=== PATIENT | male | born 1945 | race Caucasian/White ===

== ENCOUNTER 2018-07-17 16:03 | Inpatient (IN) | payer MEDICARE, OTHER ==
[~2018-07-17] VITALS: Ht 167.6 cm; Wt 72.6 kg
--- NOTE | 2018-07-17 15:58 | NUR ---
PT BIB BY AMBULANCE VIA GURNEY. PT IS CALM, COOPERATIVE, FRIEND BASSEM AT BEDSIDE WHO HELPS TRANSLATE FOR PT. PT HAS NO SIGNS OF RESPIRATORY DISTRESS, ON ROOM AIR, NO OPEN WOUNDS, AOX4, BM YESTERDAY, ANDREA INSERTED TODAY AT [facility], ANDREA IS PATENT, URINE YELLOW AND CLEAR. PT HAS BEEN NPO SINCE ARRIVAL. BRUISING IS NOTED ON THE LEFT INNER THIGH, ELBOW AND BUTTOCKS.
[2018-07-17 16:51] VITALS: BP 122/86
[2018-07-17] MEDS ORDERED: LOSA50TA39 PO (17:30)
[2018-07-17] MEDS ORDERED: MECL12.582 PO (17:30)
[2018-07-17] MEDS ORDERED: LORA1TAB PO (17:30)
[2018-07-17] MEDS ORDERED: AMLO10TA7 PO (17:30)
[2018-07-17] MEDS ORDERED: DICL100G16 TP (17:30)
[2018-07-17] MEDS ORDERED: SIMV20TA6 PO (17:34)
[2018-07-17] MEDS ORDERED: ASPI81TA31 PO (17:34)
[2018-07-17] MEDS ORDERED: SERT50TA12 PO (17:34)
[2018-07-17] MEDS ORDERED: GLIM2TAB2 PO (17:34)
[2018-07-17] MEDS ORDERED: METF-442 PO (17:34)
[2018-07-17] MEDS ORDERED: OMEP40CA37 PO (17:34)
[2018-07-17] MEDS ORDERED: VALA500T34 PO (17:36)
[2018-07-17] MEDS ORDERED: GABA-534 PO (17:36)
[2018-07-17] MEDS: HYDROMORPHONE 1 MG/1 ML DISP.SYRIN IV PRN (18:13)
--- NOTE | 2018-07-17 18:56 | NUR ---
PATIENT WAS COMPLAINING OF PAIN ON LEFT HIP, WAS GIVEN 1MG DILAUDID. PAIN IS 10/10. PATIENT IS NOT IN ANY RESPIRATORY DISTRESS AT THIS TIME. CONTINUE TO MONITOR PATIENT.
[2018-07-17] MEDS ORDERED: ACETAMINOPHEN 650 MG SUPP.RECT RC PRN (19:15)
[2018-07-17] MEDS ORDERED: DEXTROSE 50% 50 ML DISP.SYRIN IV PRN (19:15)
[2018-07-17] MEDS ORDERED: ONDANSETRON 4 MG/2 ML VIAL IV PRN (19:15)
--- NOTE | 2018-07-17 19:30 | NUR ---
RECEIVED PT IN BED,RESTING, IN NO ACUTE SIGNS OF DISTRESS. SAFETY MEASURES OBSERVED.
[2018-07-17 19:59] VITALS: BP 145/67
[2018-07-17] MEDS: IV D5 1/2 NS 1000 ML 1,000 ML IV PRN (20:42)
[2018-07-18] MEDS: HYDROMORPHONE 1 MG/1 ML DISP.SYRIN IV PRN ×5 (00:15→18:05)
[2018-07-18] MEDS: BLOOD SUGAR DIAGNOSTIC 1 EACH STRIP VI SCH ×5 (00:19→21:21)
[2018-07-18] MEDS: INSULIN REGULAR, HUMAN 300 UNIT/3 ML VIAL SQ PRN ×5 (00:29→21:22)
[2018-07-18 04:00] VITALS: BP 120/54
--- NOTE | 2018-07-18 06:13 | NUR ---
PT IN BED, RESTING, CONTINUE ON NPO, ACCUCHECK DONE WITH INSULIN COVERAGE. PT REFUSED AM INSULIN PER COVERAGE, TURNED AND REPOSITIONED. ON PAIN MANAGEMENT. MEDICATED WITH DILAUDID ORDERED. IV FLUID RUNNING ORDERED. SAFETY MEASURES MAINTAINED.
[2018-07-18 06:42] LABS: BASOPHILS % (AUTO) 0.3 % (0.0-2.0); EOSINOPHILS % (AUTO) 0.2 % (0.0-7.0); HEMOGLOBIN 11.3 g/dL (12.5-16.3); LYMPHOCYTES % (AUTO) 9.2 % (20.5-51.5); MEAN CORPUSCULAR HEMOGLOBIN 33.6 uug (23.8-33.4); MEAN CORPUSCULAR HGB CONC 35 g/dL (32.5-36.3); MEAN CORPUSCULAR VOLUME 95.4 fL (73.0-96.2); MONOCYTES % (AUTO) 9.6 % (0.0-11.0); NEUTROPHILS # (AUTO) 8.8 K/uL (1.8-8.9); NEUTROPHILS % (AUTO) 80.7 % (38.5-71.5); PLATELET COUNT (AUTO) 211 K/uL (152-348); RED BLOOD CELL COUNT(AUTO) 3.35 MIL/uL (4.06-5.63); WHITE BLOOD COUNT (AUTO) 10.9 K/uL (3.6-10.2)
[2018-07-18 07:07] LABS: ALANINE AMINOTRANSFERASE 43 U/L (16-63); ALKALINE PHOSPHATASE 47 U/L (50-136); BILIRUBIN,TOTAL 0.5 mg/dL (0.2-1.0); CARBON DIOXIDE 27 mmol/L (21-32); CHLORIDE 102 mmol/L (98-107); CHOLESTEROL 136 mg/dL (<200); CREATININE 0.8 mg/dL (0.6-1.3); GLUCOSE 174 mg/dL (74-106); HDL CHOLESTEROL 54 mg/dL (40-60); MAGNESIUM 1.8 mg/dL (1.8-2.4); PHOSPHOROUS 2.4 mg/dL (2.5-4.9); POTASSIUM 3.7 mmol/L (3.5-5.1); TOTAL PROTEIN, SERUM 6.3 g/dL (6.4-8.2); TRIGLYCERIDES 114 MG/DL (30-150); UREA NITROGEN, BLOOD 17 mg/dL (7-18)
[2018-07-18 07:17] LABS: ASPARTATE AMINOTRANSFERASE 58 U/L (15-37)
[2018-07-18 07:21] LABS: IRON, SERUM 23 ug/dL (50-175)
[2018-07-18 07:22] LABS: THYROID STIMULATING HORMONE 1.573 mIU/mL (0.358-3.740)
[2018-07-18] MEDS: PANTOPRAZOLE SODIUM 40 MG VIAL IV SCH (09:29)
[2018-07-18] MEDS ORDERED: POTASSIUM PHOSPHATE MM 7.5 MMOL in IV DEXTROSE 5% 100 ML IV ONE (11:00)
[2018-07-18 11:51] VITALS: BP 138/59
[2018-07-18 15:33] VITALS: BP 132/69
[2018-07-18] MEDS: IV D5 1/2 NS 1000 ML 1,000 ML IV PRN (18:00)
[2018-07-18] MEDS ORDERED: HYDROMORPHONE 1 MG/1 ML DISP.SYRIN IV PRN (19:15)
[2018-07-18 19:16] VITALS: BP 143/68
[2018-07-19] MEDS: HYDROMORPHONE 2 MG/1 ML DISP.SYRIN IV PRN ×4 (01:28→11:42)
--- NOTE | 2018-07-19 02:25 | NUR ---
pt pulled out iv and pulled out lynch. reinserted iv and given pt pain meds. will ask md to get order to reinsert lynch. pt had small amount of blood on penis. will reassess for complications.
[2018-07-19 03:41] VITALS: BP 157/70
--- NOTE | 2018-07-19 05:43 | NUR ---
reassesed perineal area. pt has small amount of bleeding on penis. perineal care done. pt refused lynch. asked patient when his surgery was. pt showed signs of confusion. pt continues to be non adherent to hip precautions. pt overestimates own ability. pt agreed to blood draw. bladder scan done. 171 retained. fall precautions implemented. pain medications given to provide comfort.
[2018-07-19 06:01] LABS: BASOPHILS % (AUTO) 0.3 % (0.0-2.0); EOSINOPHILS % (AUTO) 0.1 % (0.0-7.0); HEMATOCRIT 30.3 % (36.7-47.1); HEMOGLOBIN 10.8 g/dL (12.5-16.3); LYMPHOCYTES # (AUTO) 1.2 K/uL (20.0-40.0); MEAN CORPUSCULAR HEMOGLOBIN 33.8 uug (23.8-33.4); MEAN CORPUSCULAR HGB CONC 36 g/dL (32.5-36.3); MEAN CORPUSCULAR VOLUME 94.9 fL (73.0-96.2); MONOCYTES # (AUTO) 0.9 K/uL (2.0-10.0); MONOCYTES % (AUTO) 8.4 % (0.0-11.0); NEUTROPHILS # (AUTO) 8.6 K/uL (1.8-8.9); NEUTROPHILS % (AUTO) 80.2 % (38.5-71.5); PLATELET COUNT (AUTO) 210 K/uL (152-348); RED BLOOD CELL COUNT(AUTO) 3.19 MIL/uL (4.06-5.63); WHITE BLOOD COUNT (AUTO) 10.7 K/uL (3.6-10.2)
[2018-07-19 06:09] LABS: ALANINE AMINOTRANSFERASE 45 U/L (16-63); ALKALINE PHOSPHATASE 51 U/L (50-136); ASPARTATE AMINOTRANSFERASE 38 U/L (15-37); BILIRUBIN,TOTAL 0.7 mg/dL (0.2-1.0); CARBON DIOXIDE 27 mmol/L (21-32); CHLORIDE 97 mmol/L (98-107); CREATININE 0.7 mg/dL (0.6-1.3); GLUCOSE 196 mg/dL (74-106); MAGNESIUM 1.8 mg/dL (1.8-2.4); PHOSPHOROUS 2.3 mg/dL (2.5-4.9); POTASSIUM 3.4 mmol/L (3.5-5.1); TOTAL PROTEIN, SERUM 6.3 g/dL (6.4-8.2); UREA NITROGEN, BLOOD 16 mg/dL (7-18)
[2018-07-19] MEDS: IV D5 1/2 NS 1000 ML 1,000 ML IV PRN (06:40)
[2018-07-19] MEDS: BLOOD SUGAR DIAGNOSTIC 1 EACH STRIP VI SCH ×4 (06:46→21:18)
--- NOTE | 2018-07-19 07:52 | NUR ---
patient resting in bed at this time. awake/ alert x4. appears to be easily agitated. non-compliant per rn shift mgr nurse. pulled out lynch catheter. will reattempt to reinsert. pulled out IV access during the rn shift mgr and reinserted. ivf running. stable condition at this time. no signs of distress. bed alarm on. call light within reach of patient. will continue to monitor throughout shift. awaiting cardio clearance for possible surgery.
[2018-07-19] MEDS: INSULIN REGULAR, HUMAN 300 UNIT/3 ML VIAL SQ PRN ×3 (08:22→21:21)
--- NOTE | 2018-07-19 08:30 | NUR ---
NOTIFIED BY FISHER POUND NET OR TRAP NURSE THAT PATIENT HAS BEEN NPO SINCE MIDNIGHT BUT NO ORDERS WERE PLACED FOR NPO STATUS. NPO STATUS ORDER NOW PLACED.
[2018-07-19] MEDS: PANTOPRAZOLE SODIUM 40 MG VIAL IV SCH (08:57)
--- NOTE | 2018-07-19 09:44 | NUR ---
Patient now refusing to have surgery. MD notified. Will try to get into contact with patient's family/friend contact in chart.
[2018-07-19] MEDS ORDERED: POLYMYXIN B SULFATE 500,000 UNITS, BACITRACIN 50,000 UNITS, NORMAL SALINE 20 ML MC ONE ×3 (10:15)
[2018-07-19] MEDS ORDERED: hydrALAZINE HCL 25 MG TABLET PO PRN (11:15)
[2018-07-19 11:31] VITALS: BP 145/65
--- NOTE | 2018-07-19 12:00 | NUR ---
PATIENT HAS AGREED TO PROCEED WITH SURGERY.
[2018-07-19] MEDS: POTASSIUM PHOSPHATE MM 7.5 MMOL in IV DEXTROSE 5% 100 ML IV SCH ×2 (12:47→15:52)
--- NOTE | 2018-07-19 14:15 | NUR ---
PATIENT REFUSES TO HAVE ANDREA CATHETER INSERTED FOR SURGERY. UNABLE TO OBTAIN URINE FOR URINALYSIS PROFILE DUE TO PATIENT REFUSAL TO URINATE IN URINAL.
[2018-07-19 15:11] VITALS: BP 146/74
--- NOTE | 2018-07-19 17:04 | NUR ---
PATIENT LEFT FOR SURGERY AT THIS TIME. POST OP CHECKLIST DONE. STABLE CONDITION. NO SIGNS OF DISTRESS.
[2018-07-19] MEDS ORDERED: MIDAZOLAM HCL 2 MG/2 ML VIAL ONE (17:53)
[2018-07-19] MEDS ORDERED: FENTANYL CITRATE 250 MCG/5 ML AMPUL ONE (17:54)
[2018-07-19] MEDS ORDERED: METOCLOPRAMIDE HCL 10 MG/2 ML VIAL ONE (17:54)
[2018-07-19] MEDS ORDERED: SUCCINYLCHOLINE CHLORIDE 200 MG/10 ML VIAL ONE (17:55)
--- NOTE | 2018-07-19 17:57 | NUR ---
Patient in O.R., currently undergoing surgery.
[2018-07-19] MEDS ORDERED: FENTANYL CITRATE 100 MCG/2 ML AMPUL ONE (19:40)
[2018-07-19] MEDS ORDERED: HYDROCODONE/APAP 10-325 MG TABLET PO PRN (20:00)
[2018-07-19] MEDS ORDERED: hydrALAZINE HCL 20 MG/1 ML VIAL ONE (20:09)
--- NOTE | 2018-07-19 20:20 | NUR ---
Received patient back from OR accompanied by OR nurses. Patient currently confused and refused oxygen support via nasal cannula, current oxygen saturation on room air is 97%. With IV access at left forearm, patent and intact to ongoing normal saline, infusing well. Will change IVF to D5 1/2NS + 20meqs KCl as ordered. Noted with mepilex x 3 at left leg, dry and intact. Noted patient has no lynch catheter which was refused by patient preoperative. No complaints at the moment. Bed in low position, side rails up x 2, call light within reach. Noise and lights subdued. Will continue to monitor.
[2018-07-19 20:45] VITALS: BP 155/60
[2018-07-19] MEDS: SIMVASTATIN 20 MG TABLET PO SCH (21:00)
[2018-07-19 21:15] VITALS: BP 146/63
[2018-07-19] MEDS: IV D5W-0.45% NS +20 KCL 1,000 ML IV PRN (21:26)
[2018-07-19] MEDS ORDERED: IV NORMAL SALINE 1000 ML BAG IV ONE (22:44)
[2018-07-19] MEDS ORDERED: SEVOFLURANE 250 ML BOTTLE IH ONE (22:44)
[2018-07-19] MEDS ORDERED: ONDANSETRON 4 MG/2 ML VIAL IV ONE (22:44)
[2018-07-19] MEDS ORDERED: CEFAZOLIN 1 G VIAL MC ONE (22:44)
[2018-07-19] MEDS ORDERED: PROPOFOL 200 MG/20 ML BOTTLE IV ONE (22:44)
[2018-07-19] MEDS ORDERED: IRR NORMAL SALINE IRRIGATION 1,000 ML BOTTLE IR ONE (22:44)
[2018-07-20] MEDS: MORPHINE SULFATE 4 MG/1 ML DISP.SYRIN IV PRN ×3 (01:05→10:27)
[2018-07-20] MEDS: CEFAZOLIN 1 G in PREMIXED 1 EACH IV SCH ×2 (01:42→09:18)
--- NOTE | 2018-07-20 01:52 | NUR ---
Attempted to place air mattress, however patient in severe pain even after morphine injection and refuses to be turned. Was only able to change diapers, will attempt to place mattress later.
[2018-07-20 04:03] VITALS: BP 148/74
--- NOTE | 2018-07-20 05:49 | NUR ---
Air mattress placed on patient's bed. Pain medication given. Dressing at left leg with mepilex, clean and intact. Still with ongoing IVF at left forearm, infusing well. Still with no bowel movement, unable to collect any sample yet for occult blood. Noted with SCD on both legs, maintained. Bed in low position, side rails up x 2, call light within reach. Ensured safety and comfort.
[2018-07-20] MEDS: BLOOD SUGAR DIAGNOSTIC 1 EACH STRIP VI SCH ×4 (06:39→20:49)
[2018-07-20 06:51] LABS: BASOPHILS % (AUTO) 0.3 % (0.0-2.0); HEMOGLOBIN 11.2 g/dL (12.5-16.3); LYMPHOCYTES # (AUTO) 0.6 K/uL (20.0-40.0); LYMPHOCYTES % (AUTO) 5.3 % (20.5-51.5); MEAN CORPUSCULAR HEMOGLOBIN 34.2 uug (23.8-33.4); MEAN CORPUSCULAR HGB CONC 35 g/dL (32.5-36.3); MEAN CORPUSCULAR VOLUME 97.3 fL (73.0-96.2); MONOCYTES % (AUTO) 8.8 % (0.0-11.0); NEUTROPHILS # (AUTO) 9.7 K/uL (1.8-8.9); NEUTROPHILS % (AUTO) 85.6 % (38.5-71.5); PLATELET COUNT (AUTO) 228 K/uL (152-348); RED BLOOD CELL COUNT(AUTO) 3.29 MIL/uL (4.06-5.63); WHITE BLOOD COUNT (AUTO) 11.3 K/uL (3.6-10.2)
[2018-07-20 06:56] LABS: ALANINE AMINOTRANSFERASE 42 U/L (16-63); ALKALINE PHOSPHATASE 58 U/L (50-136); ASPARTATE AMINOTRANSFERASE 36 U/L (15-37); BILIRUBIN,TOTAL 1.7 mg/dL (0.2-1.0); CARBON DIOXIDE 25 mmol/L (21-32); CHLORIDE 102 mmol/L (98-107); CREATININE 0.8 mg/dL (0.6-1.3); GLUCOSE 197 mg/dL (74-106); MAGNESIUM 1.8 mg/dL (1.8-2.4); PHOSPHOROUS 3.1 mg/dL (2.5-4.9); POTASSIUM 4.1 mmol/L (3.5-5.1); TOTAL PROTEIN, SERUM 6.4 g/dL (6.4-8.2); UREA NITROGEN, BLOOD 14 mg/dL (7-18)
--- NOTE | 2018-07-20 07:13 | NUR ---
PATIENT RESTING COMFORTABLY IN BED AT THIS TIME. STABLE CONDITION. SURGICAL INCISION SITES INTACT. NO SIGNS OF BLEEDING. IVF RUNNING. PATIENT NON-COMPLIANT PER LOZENGE DOUGH MIXER NURSE. WILL REORIENT AND RE-EDUCATE PATIENT. PHYSICAL THERAPY TODAY. INCENTIVE SPIROMETER AT BEDSIDE. PAIN MANAGEMENT WILL BE PROVIDED. WILL CONTINUE TO MONITOR THROUGHOUT SHIFT. BED ALARM ON, CALL LIGHT WITHIN REACH OF PATIENT. KCI MATTRESS ON. SAFETY MEASURES IMPLEMENTED.
[2018-07-20 08:00] VITALS: BP 148/74
[2018-07-20] MEDS: PANTOPRAZOLE SODIUM 40 MG TABLET.DR PO SCH (08:01)
[2018-07-20] MEDS: INSULIN REGULAR, HUMAN 300 UNIT/3 ML VIAL SQ PRN ×3 (08:06→20:53)
[2018-07-20] MEDS ORDERED: AMLODIPINE 5 MG TABLET PO SCH (09:00)
[2018-07-20] MEDS ORDERED: LOSARTAN POTASSIUM 50 MG TABLET PO SCH (09:30)
[2018-07-20] MEDS: GLIMEPIRIDE 2 MG TABLET PO SCH (09:44)
[2018-07-20 10:54] VITALS: BP 155/70
[2018-07-20 15:12] VITALS: BP 145/70
--- NOTE | 2018-07-20 15:51 | NUR ---
PAIN MANAGEMENT PROVIDED. REORIENTATION PROVIDED. IVF RUNNING. STABLE CONDITION. NO SIGNS OF INFECTION OR BLEEDING AT SURGICAL INCISION SITES.
[2018-07-20] MEDS: IV D5W-0.45% NS +20 KCL 1,000 ML IV PRN (16:07)
--- NOTE | 2018-07-20 16:20 | NUR ---
PATIENT DISCHARGED AT THIS TIME IN STABLE CONDITION. DISCHARGE INSTRUCTIONS/PACKET/EDUCATION PROVIDED TO PATIENT/[facility]. REPORT GIVEN TO RAQUEL RODRIGUEZ FROM [facility]. ID-BAND TAKEN OFF. MIDLINE IV-ACCESS DISCONNECTED. BELONGINGS RETURNED. TRANSPORTED BY AMBULANCE. DISCHARGED FROM [facility]. SAFETY MEASURES IMPLEMENTED. Addendum: 07/20/18 at 1825 by MACIE BECKER RN PLEASE DISREGARD THIS NOTE - INCORRECT PATIENT
[2018-07-20] MEDS: LOSARTAN POTASSIUM 50 MG TABLET PO SCH (16:27)
[2018-07-20] MEDS: METFORMIN HCL 500 MG TABLET PO SCH (17:45)
--- NOTE | 2018-07-20 18:27 | NUR ---
PATIENT STABLE THROUGHOUT SHIFT. PAIN MANAGEMENT PROVIDED NEEDED. RESTING COMFORTABLY IN BED. NO SIGNS OF INFECTION OR BLEEDING AT SURGICAL INCISION SITES. BED ALARM ON. REORIENTATION PROVIDED. CALL LIGHT WITHIN REACH OF PATIENT. IVF RUNNING. SAFETY MEASURES IMPLEMENTED. BED REST AT THIS TIME. WILL CONTINUE TO MONITOR UNTIL OF SHIFT.
--- NOTE | 2018-07-20 19:40 | NUR ---
Received patient awake on moderate high back rest, noted with air mattress in place. With IV access at left antecubital vein, patent and intact to ongoing IVF, infusing well. Noted with mepilex x 3 at left leg, dry and intact. No complaints at the moment, will monitor for recurrence of pain. Bed in low position, side rails up x 2, call light within reach. Noise and lights subdued. Will continue to monitor.
[2018-07-20 20:03] VITALS: BP 118/65
[2018-07-20] MEDS: SIMVASTATIN 20 MG TABLET PO SCH (20:42)
[2018-07-21 04:33] VITALS: BP 144/70
[2018-07-21] MEDS: MORPHINE SULFATE 4 MG/1 ML DISP.SYRIN IV PRN ×3 (05:36→18:23)
[2018-07-21] MEDS: PANTOPRAZOLE SODIUM 40 MG TABLET.DR PO SCH (06:23)
[2018-07-21] MEDS: IV D5W-0.45% NS +20 KCL 1,000 ML IV PRN (06:23)
[2018-07-21] MEDS: BLOOD SUGAR DIAGNOSTIC 1 EACH STRIP VI SCH ×4 (06:33→21:06)
--- NOTE | 2018-07-21 06:36 | NUR ---
Patient asleep on low back rest, still with air mattress in place. With IV access at right hand vein, patent and intact to ongoing IVF, infusing well. Noted with mepilex x 3 at left leg, dry and intact. With complaints of pain, prn pain medication given. Noted patient able to tolerate more movement tonight compared to yesterday. Bed in low position, side rails up x 2, call light within reach. Ensured safety and comfort.
[2018-07-21] MEDS: INSULIN REGULAR, HUMAN 300 UNIT/3 ML VIAL SQ PRN ×3 (08:17→21:09)
[2018-07-21] MEDS: METFORMIN HCL 500 MG TABLET PO SCH ×2 (08:34→17:39)
[2018-07-21] MEDS: GLIMEPIRIDE 2 MG TABLET PO SCH (08:34)
[2018-07-21] MEDS: LOSARTAN POTASSIUM 50 MG TABLET PO SCH ×2 (08:35→17:38)
[2018-07-21] MEDS ORDERED: AMLODIPINE 5 MG TABLET PO SCH (09:00)
[2018-07-21] MEDS ORDERED: AMLODIPINE 10 MG TABLET PO SCH (09:00)
--- NOTE | 2018-07-21 09:00 | NUR ---
PER DR CHRISSIE DUFFY IS HERE AT THE MOMENT STATED THAT THERE IS DISCHARGE PLANNING TO SEND PATIENT TO ACUTE REHAB TODAY AWAITING FOR ORDERS AND AVAILABILITY OF BED AT THE ACUTE REHAB.
--- NOTE | 2018-07-21 09:40 | NUR ---
MEDICATED PATIENT WITH MORPHINE PHYSICAL THERAPY WILL BE HERE TO SEE PATIENT FOR THERAPEUTIC EXERCISES ORDERED.
--- NOTE | 2018-07-21 12:09 | NUR ---
PATIENT AND FAMILY HAS AGREED TO GO TO THE ACUTE REHAB TODAY AWAITING FOR DISCHARGE ORDER FROM DR DICKENS.
[2018-07-21 12:11] VITALS: BP 143/74
[2018-07-21 16:10] VITALS: BP 140/69
--- NOTE | 2018-07-21 18:00 | NUR ---
PER THE [facility] WILL BE ABLE TO ACCEPT PATIENT AT 1945 TODAY BUT STILL AWAITING FOR DR DICKENS TO COMPLETE THE DISCHARGE IN THE [facility].
--- NOTE | 2018-07-21 18:25 | NUR ---
PATIENT IS ATTEMPTING TO GET HIMSELF OUT OF BED WITH HIS LEFT LEG DANGLING DOWN LAYING SIDEWAYS LANGUAGE BARRIER IS A PROBLEM HE IS RESTLESS WITH FACIAL GRIMACING EVEN THOUGH HE CONTINUES TO DENY PAIN MEDICATED WITH MORPHINE PULLED HIM UP IN BED AND MADE HIM COMFORTABLE BUT HE CONTINUES TO BE UNCOOPERATIVE AND SCREAMING RESISTING THE CARE
--- NOTE | 2018-07-21 19:20 | NUR ---
Received patient lying in bed. Family at bedside. In no acute distress. IV site on right FA intact and patent. IVF infusing. Left hip incision site cover with Mepilex. No signs of pain at this time. Continue to monitor. Safety measure initiated ad call prado within reach. Patient awaiting to be discharge to ARU tonight.
[2018-07-21 19:32] VITALS: BP 152/65
[2018-07-21] MEDS ORDERED: POLY17PO4 PO (20:16)
[2018-07-21] MEDS ORDERED: HYDR-4354 PO (20:16)
[2018-07-21] MEDS ORDERED: ACET-2154 PO (20:16)
[2018-07-21] MEDS ORDERED: INSU100V28 SQ (20:16)
[2018-07-21] MEDS ORDERED: HYDR-4076 PO (20:16)
[2018-07-21] MEDS ORDERED: MULT1TAB73 PO (20:16)
[2018-07-21] MEDS ORDERED: DOCU-141 PO (20:16)
[2018-07-21] MEDS ORDERED: PANT40TA2 PO (20:16)
[2018-07-21] MEDS ORDERED: SIMV10TA6 PO (20:16)
[2018-07-21] MEDS: SIMVASTATIN 20 MG TABLET PO SCH (21:00)
--- NOTE | 2018-07-21 22:45 | NUR ---
Patient will be discharge to ARU, report given to nurse Hooker. Patient alert to self only. Farsi speaking. In no acute distress. Morphine per order given for complain of pain. IV site discontinued. Sent to ARU on a hospital bed.
== END 2018-07-21 22:45 | DRG 481 ==
LOC: MED 16:03
PROVIDERS: ADMIT Internal Medicine; ATTEND Internal Medicine
PROC: 0QS706Z Reposition Left Upper Femur with Intramedullary Internal Fixation Device, Open Approach (ICD-10-PCS; 2018-07-17)
PROC: 2W6PXZZ Traction of Left Upper Leg (ICD-10-PCS; principal; 2018-07-19)
DX: S72.142A Displaced intertrochanteric fracture of left femur, initial encounter for closed fracture (principal); E87.1 Hypo-osmolality and hyponatremia; D68.59 Other primary thrombophilia; K92.2 Gastrointestinal hemorrhage, unspecified; W18.30XA Fall on same level, unspecified, initial encounter; E11.42 Type 2 diabetes mellitus with diabetic polyneuropathy; Y92.89 Other specified places as the place of occurrence of the external cause; E78.5 Hyperlipidemia, unspecified; Z79.82 Long term (current) use of aspirin; Z79.84 Long term (current) use of oral hypoglycemic drugs; F32.9 Major depressive disorder, single episode, unspecified; K21.9 Gastro-esophageal reflux disease without esophagitis; Z74.09 Other reduced mobility; E11.65 Type 2 diabetes mellitus with hyperglycemia; R74.0 Nonspecific elevation of levels of transaminase and lactic acid dehydrogenase [LDH]; D53.9 Nutritional anemia, unspecified; D72.828 Other elevated white blood cell count; I11.9 Hypertensive heart disease without heart failure; I05.0 Rheumatic mitral stenosis; D50.0 Iron deficiency anemia secondary to blood loss (chronic); I70.0 Atherosclerosis of aorta
CPT/HCPCS: 36415; 70030-TC; 73503; 82378; 82652; 83550; 83735; 84100; 84443; 85025; 85610; 85730; 86850; 86900; 86901; 93307; A4217; A4649; A4663; C1769; C9113; G0378; J0330; J0360; J0690; J1170; J1815; J2250; J2270; J2405; J2765; J3010; J3490; J7030; J7060

== ENCOUNTER 2018-07-21 19:18 | Inpatient (IN) | payer MEDICARE, OTHER ==
[~2018-07-21] VITALS: Ht 167.6 cm; Wt 72.6 kg
[~2018-07-21 19:18] MED LIST: AMLO10TA7 PO; ASPI81TA31 PO; DICL100G16 TP; GABA-534 PO; GLIM2TAB2 PO; LORA1TAB PO; LOSA50TA39 PO; MECL12.582 PO; METF-442 PO; OMEP40CA37 PO; SERT50TA12 PO; SIMV20TA6 PO; VALA500T34 PO
[2018-07-21] MEDS ORDERED: DOCU-141 PO (20:16)
[2018-07-21] MEDS ORDERED: SIMV10TA6 PO (20:16)
[2018-07-21] MEDS ORDERED: POLY17PO4 PO (20:16)
[2018-07-21] MEDS ORDERED: ACET-2154 PO (20:16)
[2018-07-21] MEDS ORDERED: PANT40TA2 PO (20:16)
[2018-07-21] MEDS ORDERED: INSU100V28 SQ (20:16)
[2018-07-21] MEDS ORDERED: HYDR-4076 PO (20:16)
[2018-07-21] MEDS ORDERED: MULT1TAB73 PO (20:16)
[2018-07-21] MEDS ORDERED: HYDR-4354 PO (20:16)
[2018-07-21 22:30] VITALS: BP 149/73
[2018-07-21] MEDS ORDERED: MIRALAX 17 GM POWD.PACK PO PRN (23:15)
[2018-07-21] MEDS ORDERED: hydrALAZINE HCL 25 MG TABLET PO PRN (23:15)
[2018-07-21] MEDS ORDERED: DEXTROSE 50% 50 ML DISP.SYRIN IV PRN (23:30)
[2018-07-22] MEDS ORDERED: Z GUARD REMEDY PASTE 57 GM TUBE TOP PRN
--- NOTE | 2018-07-22 04:17 | NUR ---
received a 72 year old male admitted from med-surg with an admitting diagnosis of left hip fracture. S/P left hip intermeddullary nailing done by Dr Summers on 07/19/18. left hip with 3 4x4's dressings with henry intact. no drainage noted. kept comfortable. AAOx2-3 speaks mostly Farsi little bit polish. Has hx of DM, HTN, Anemia, Depression and hyperlipidemia plus osteoarthritis left hip. Able to follow commands. Was medicated with morphine prio upon arriving to ARU. Lungs clean but diminished at the bases.abdomen soft non-tender (+) bowel sounds. Incontinent of urine and BM. Denies any pain at this times.No acute distress noted.
[2018-07-22] MEDS: HYDROCODONE/APAP 10-325 MG TABLET PO PRN ×2 (05:20→09:12)
[2018-07-22 05:24] VITALS: BP 140/59
[2018-07-22] MEDS: PANTOPRAZOLE SODIUM 40 MG TABLET.DR PO SCH (06:32)
[2018-07-22] MEDS: BLOOD SUGAR DIAGNOSTIC 1 EACH STRIP VI SCH ×4 (06:34→20:21)
[2018-07-22 08:15] VITALS: BP 110/40
[2018-07-22] MEDS ORDERED: Medication Not On Formulary EA (Multivitamins (Multivitamin) 1 EACH) PO SCH (09:00)
--- NOTE | 2018-07-22 09:00 | NUR ---
Pt remains awake,alert,confused.Speaks Farsi.PT Edmundo at bedside to translate.No acute distress noted.Pt c/o Left hip pain.Will medicate with pain medication.Will continue to monitor.
[2018-07-22] MEDS: AMLODIPINE 10 MG TABLET PO SCH (09:10)
[2018-07-22] MEDS: GABAPENTIN 300 MG CAPSULE PO SCH ×3 (09:10→17:00)
[2018-07-22] MEDS: METFORMIN HCL 500 MG TABLET PO SCH ×2 (09:10→17:12)
[2018-07-22] MEDS: LOSARTAN POTASSIUM 50 MG TABLET PO SCH ×2 (09:11→17:00)
[2018-07-22] MEDS: MULTIVITAMINS,THERAPEUTIC TABLET PO SCH (09:11)
[2018-07-22] MEDS: GLIMEPIRIDE 2 MG TABLET PO SCH (09:11)
[2018-07-22] MEDS: SERTRALINE HCL 50 MG TABLET PO SCH (09:11)
[2018-07-22] MEDS: ASPIRIN 81 MG TAB.CHEW PO SCH (09:11)
[2018-07-22 12:00] VITALS: BP 126/78
--- NOTE | 2018-07-22 14:00 | NUR ---
Pt family at bedside,updated on pt condition.
--- NOTE | 2018-07-22 15:52 | NUR ---
Pt remains to be confused.No acute distress noted.Will continue to monitor.
[2018-07-22 15:55] VITALS: BP 148/74
--- NOTE | 2018-07-22 18:20 | NUR ---
Seen,examined by .Updated on pt condition.
[2018-07-22 19:49] LABS: CARBON DIOXIDE 26 mmol/L (21-32); CHLORIDE 97 mmol/L (98-107); CREATININE 0.8 mg/dL (0.6-1.3); GLUCOSE 82 mg/dL (74-106); UREA NITROGEN, BLOOD 13 mg/dL (7-18)
[2018-07-22 19:55] LABS: ALANINE AMINOTRANSFERASE 127 U/L (16-63); ALKALINE PHOSPHATASE 120 U/L (50-136); ASPARTATE AMINOTRANSFERASE 71 U/L (15-37); BILIRUBIN,TOTAL 1.6 mg/dL (0.2-1.0); MAGNESIUM 1.7 mg/dL (1.8-2.4); TOTAL PROTEIN, SERUM 7.3 g/dL (6.4-8.2)
[2018-07-22 20:00] VITALS: BP 164/73
[2018-07-22 20:09] LABS: BASOPHILS # (AUTO) 0.1 K/uL (0.0-8.0); BASOPHILS % (AUTO) 0.5 % (0.0-2.0); EOSINOPHILS % (AUTO) 0.1 % (0.0-7.0); HEMATOCRIT 32.1 % (36.7-47.1); HEMOGLOBIN 11.1 g/dL (12.5-16.3); LYMPHOCYTES # (AUTO) 0.8 K/uL (20.0-40.0); LYMPHOCYTES % (AUTO) 5.4 % (20.5-51.5); MEAN CORPUSCULAR HEMOGLOBIN 33.2 uug (23.8-33.4); MEAN CORPUSCULAR HGB CONC 35 g/dL (32.5-36.3); MEAN CORPUSCULAR VOLUME 95.8 fL (73.0-96.2); MONOCYTES # (AUTO) 0.9 K/uL (2.0-10.0); MONOCYTES % (AUTO) 5.9 % (0.0-11.0); NEUTROPHILS # (AUTO) 13.8 K/uL (1.8-8.9); NEUTROPHILS % (AUTO) 88.1 % (38.5-71.5); PLATELET COUNT (AUTO) 315 K/uL (152-348); RED BLOOD CELL COUNT(AUTO) 3.35 MIL/uL (4.06-5.63); WHITE BLOOD COUNT (AUTO) 15.7 K/uL (3.6-10.2)
[2018-07-22] MEDS: SIMVASTATIN 10 MG TABLET PO SCH (20:09)
[2018-07-22] MEDS: LORAZEPAM 1 MG TABLET PO SCH (20:09)
[2018-07-22] MEDS: DOCUSATE SODIUM 100 MG CAPSULE PO SCH (20:10)
--- NOTE | 2018-07-22 21:19 | NUR ---
Received pt sleeping in bed. Farsi speaking. No acute distress noted. No c/o pain or discomfort, FLACC 0. 1:1 sitter at bedside. ordered labs, xray, and ct head without contrast STAT. Lab was drawn, pt was observed to be shouting. X-ray also done. Blood sugar of 83, no insulin coverage. BP 164/73. Meds were given as ordered including PRN hydralazine for increased BP. Pt was uncooperative at first before taking the medications. Chemistry Manager was at bedside translating but pt kept on refusing and making hand gestures for staff to go away. At 2029, pt was sent for CT scan together with radiology staff and sitter, tolerated well. Pt is now in bed, sleeping. Safety measures maintained. Will continue to monitor.
[2018-07-22] MEDS: ACETAMINOPHEN 325 MG TABLET PO PRN (22:09)
--- NOTE | 2018-07-22 22:15 | NUR ---
Pt's temperature 101.8 F. Cool measures provided and Tylenol was given. Dr. Crystal notified. ordered IV antibiotics. IV site placed on right forearm gauge 22. Will continue to monitor.
[2018-07-22] MEDS ORDERED: VANCOMYCIN IV 1 G in PREMIXED 0 EACH IV ONE (22:17)
[2018-07-22] MEDS ORDERED: ENOXAPARIN SODIUM 80 MG/0.8 ML DISP.SYRIN SQ ONE ×2 (22:30→23:12)
[2018-07-22] MEDS ORDERED: VANCOMYCIN IV 200 ML ONE (22:39)
[2018-07-22] MEDS ORDERED: PIPERACILLIN/TAZOBACTAM/D5W 50 ML IV ONE (22:40)
[2018-07-23] MEDS: PIPERACILLIN/TAZOBACTAM/D5W 3.375 G in PREMIXED 1 EACH IV SCH ×4 (00:34→21:23)
[2018-07-23] MEDS ORDERED: PIPERACILLIN/TAZOBACTAM/D5W 50 ML IV ONE (04:00)
[2018-07-23 04:40] VITALS: BP 148/70
[2018-07-23] MEDS: PANTOPRAZOLE SODIUM 40 MG TABLET.DR PO SCH (06:16)
[2018-07-23] MEDS: ACETAMINOPHEN 325 MG TABLET PO PRN (06:16)
[2018-07-23] MEDS: BLOOD SUGAR DIAGNOSTIC 1 EACH STRIP VI SCH ×4 (06:34→21:20)
--- NOTE | 2018-07-23 06:42 | NUR ---
Pt slept intermittently at night. Appears to be more cooperative this morning. Turned and repositioned Q2H. Both heels offloaded. All needs attended to promptly. Continue to monitor.
[2018-07-23] MEDS ORDERED: hydrALAZINE HCL 25 MG TABLET PO PRN (07:15)
[2018-07-23 07:41] VITALS: BP 142/52
[2018-07-23] MEDS: MULTIVITAMINS,THERAPEUTIC TABLET PO SCH (08:05)
[2018-07-23] MEDS: ASPIRIN 81 MG TAB.CHEW PO SCH (08:05)
[2018-07-23] MEDS: GABAPENTIN 300 MG CAPSULE PO SCH ×3 (08:05→16:16)
[2018-07-23] MEDS: METFORMIN HCL 500 MG TABLET PO SCH ×2 (08:05→16:16)
[2018-07-23] MEDS: GLIMEPIRIDE 2 MG TABLET PO SCH (08:05)
[2018-07-23] MEDS: AMLODIPINE 10 MG TABLET PO SCH (08:06)
[2018-07-23] MEDS: LOSARTAN POTASSIUM 50 MG TABLET PO SCH ×2 (08:06→16:17)
[2018-07-23] MEDS: SERTRALINE HCL 50 MG TABLET PO SCH (08:07)
[2018-07-23] MEDS: INSULIN REGULAR, HUMAN 300 UNIT/3 ML VIAL SQ PRN ×3 (08:14→21:21)
[2018-07-23 08:19] LABS: ALANINE AMINOTRANSFERASE 122 U/L (16-63); ALKALINE PHOSPHATASE 152 U/L (50-136); ASPARTATE AMINOTRANSFERASE 71 U/L (15-37); BILIRUBIN,TOTAL 1.7 mg/dL (0.2-1.0); CARBON DIOXIDE 27 mmol/L (21-32); CHLORIDE 97 mmol/L (98-107); CREATININE 0.8 mg/dL (0.6-1.3); GLUCOSE 183 mg/dL (74-106); MAGNESIUM 1.7 mg/dL (1.8-2.4); PHOSPHOROUS 2.9 mg/dL (2.5-4.9); POTASSIUM 3.7 mmol/L (3.5-5.1); TOTAL PROTEIN, SERUM 6.4 g/dL (6.4-8.2); UREA NITROGEN, BLOOD 14 mg/dL (7-18)
--- NOTE | 2018-07-23 08:47 | NUR ---
Patients noted resting in bed with eyes closed, 1 to 1 sitter noted at bed side, no combative behaviors noted at this time, no complaints of pain at this time, no signs of distress noted, call light in reach, bed locked and in lowest position, took all AM medications, all needs met
[2018-07-23 09:18] LABS: BASOPHILS # (AUTO) 0.1 K/uL (0.0-8.0); BASOPHILS % (AUTO) 0.5 % (0.0-2.0); EOSINOPHILS % (AUTO) 0.1 % (0.0-7.0); LYMPHOCYTES # (AUTO) 0.9 K/uL (20.0-40.0); LYMPHOCYTES % (AUTO) 7.1 % (20.5-51.5); MEAN CORPUSCULAR HEMOGLOBIN 33.9 uug (23.8-33.4); MEAN CORPUSCULAR HGB CONC 35 g/dL (32.5-36.3); MEAN CORPUSCULAR VOLUME 95.9 fL (73.0-96.2); MONOCYTES # (AUTO) 1.2 K/uL (2.0-10.0); MONOCYTES % (AUTO) 10.1 % (0.0-11.0); NEUTROPHILS # (AUTO) 10.1 K/uL (1.8-8.9); NEUTROPHILS % (AUTO) 82.2 % (38.5-71.5); PLATELET COUNT (AUTO) 277 K/uL (152-348); RED BLOOD CELL COUNT(AUTO) 2.97 MIL/uL (4.06-5.63); WHITE BLOOD COUNT (AUTO) 12.3 K/uL (3.6-10.2)
[2018-07-23 09:25] LABS: HEMATOCRIT 28.4 % (36.7-47.1); HEMOGLOBIN 10.1 g/dL (12.5-16.3)
[2018-07-23] MEDS: HYDROCODONE/APAP 10-325 MG TABLET PO PRN (11:15)
[2018-07-23] MEDS ORDERED: MAGNESIUM SULFATE/D5W 100 ML IV SCH (11:45)
--- NOTE | 2018-07-23 11:54 | NUR ---
Clinical Pharmacy Note: Vancomycin Dosing per Pharmacy Subjective: Vancomycin IV to start on this 72 yo male patient for spiking fever (post-op) Objective: BUN 14/Scr 0.8 WBC 12.3 Temperature 97.9 ht 167.6 cm wt 72 kg Assessment/Plan: Patient received vanco 1gm IVPB x1 last night at 2300. Will start vanco 1gm IVPB q17h for predicted vanco trough level of 15.6 mcg/ml at steady state. 2nd dose due today at 1600. Plan to order vanco trough level before 4th dose (not yet ordered). Will monitor renal function & adjust the dose if needed. Will follow
--- NOTE | 2018-07-23 12:21 | NUR ---
The patient had breakfast and lunch. RN agrees to schedule the the exam tomorrow morning.
[2018-07-23 16:00] VITALS: BP 140/64
[2018-07-23] MEDS: VANCOMYCIN IV 1 G in PREMIXED 0 EACH IV SCH (16:16)
--- NOTE | 2018-07-23 16:52 | NUR ---
192 dollars noted in patient's sock by CONNIE CLEANER, patient agreed to store money in hospital safe, myself and other RN on staff witnessed money count, money logged and placed in safe at this time
[2018-07-23] MEDS ORDERED: HYDROCODONE/APAP 10-325 MG TABLET PO PRN (17:45)
[2018-07-23] MEDS: RIVAROXABAN 10 MG TABLET PO SCH (18:31)
--- NOTE | 2018-07-23 19:15 | NUR ---
Received patient in bed. Sitter at bedside. Alert and verbally responsive. Farsi speaking. No c/o pain and discomfort. No acute distress. No SOB. IV site on right inner forearm. Patent and intact. No s/s of infiltration. Left hip surgical site is clean and intact. No s/s of bleeding. Bruising noted at site. Patient kept clean and dry. All needs attended to promptly. Call light within reach. Will continue to monitor.
[2018-07-23 19:23] VITALS: BP 134/60
[2018-07-23] MEDS: LORAZEPAM 1 MG TABLET PO SCH (21:19)
[2018-07-23] MEDS: SIMVASTATIN 10 MG TABLET PO SCH (21:20)
[2018-07-23] MEDS: DOCUSATE SODIUM 100 MG CAPSULE PO SCH (21:20)
[2018-07-23] MEDS: OXYCODONE HCL 10 MG TAB.SR.12H PO SCH (22:51)
--- NOTE | 2018-07-23 23:00 | NUR ---
UA and Urine Cx ordered for patient by ID. Straight cath ordered to be done as patient is incontinent. housekeeping staff to help translate procedure to patient. Patient verbalize understanding of procedure and tolerated well. Drained clear yellow urine. Patient kept clean and dry. All needs attended to promptly. Call light within reach. Will continue to monitor.
[2018-07-23 23:32] LABS: *BILIRUBIN,URIN NEGATIVE (NEGATIVE); *BLOOD, URINE 2+ (NEGATIVE); *CLARITY,URINE CLEAR (CLEAR); *COLOR,URINE YELLOW (YELLOW); *KETONES,URINE NEGATIVE (NEGATIVE); LEUKOCYTE ESTERASE ,URINE NEGATIVE (NEGATIVE); NITRITE, URINE NEGATIVE (NEGATIVE); UGLUCOSE NEGATIVE (NEGATIVE)
[2018-07-24 00:02] LABS: BACTERIA,URINE NONE SEEN /HPF (NONE SEEN); MUCUS,URINE FEW /LPF (0-FEW); RBC,URINE 20-50 /HPF (0-3); RENAL EPITHELIAL CELLS,URINE FEW /LPF (NONE SEEN); SQUAMOUS EPITHELIAL CELL,UR FEW /HPF (NONE SEEN); TRANSITIONAL EPI CELLS,URINE FEW /LPF (NONE SEEN); WBC,URINE 0-3 /HPF (0-3)
[2018-07-24 04:40] VITALS: BP 144/79
[2018-07-24] MEDS: PIPERACILLIN/TAZOBACTAM/D5W 3.375 G in PREMIXED 1 EACH IV SCH ×2 (05:59→13:41)
[2018-07-24] MEDS: PANTOPRAZOLE SODIUM 40 MG TABLET.DR PO SCH (06:00)
[2018-07-24] MEDS: OXYCODONE HCL 10 MG TAB.SR.12H PO SCH ×2 (06:01→13:41)
[2018-07-24] MEDS: BLOOD SUGAR DIAGNOSTIC 1 EACH STRIP VI SCH ×3 (07:07→17:30)
[2018-07-24] MEDS: METFORMIN HCL 500 MG TABLET PO SCH ×2 (08:14→17:22)
[2018-07-24] MEDS: ASPIRIN 81 MG TAB.CHEW PO SCH (08:14)
[2018-07-24] MEDS: GLIMEPIRIDE 2 MG TABLET PO SCH (08:15)
[2018-07-24] MEDS: AMLODIPINE 10 MG TABLET PO SCH (08:15)
[2018-07-24] MEDS: MULTIVITAMINS,THERAPEUTIC TABLET PO SCH (08:15)
[2018-07-24] MEDS: LOSARTAN POTASSIUM 50 MG TABLET PO SCH ×2 (08:15→17:25)
[2018-07-24] MEDS: SERTRALINE HCL 50 MG TABLET PO SCH (08:16)
[2018-07-24] MEDS: VANCOMYCIN IV 1 G in PREMIXED 0 EACH IV SCH (09:34)
--- NOTE | 2018-07-24 11:17 | NUR ---
Patient noted sitting up in bed,PRN norco given for left hip pain, no signs of distress noted, call light in reach, bed locked and in lowest positon, all needs met at this time
--- NOTE | 2018-07-24 13:42 | NUR ---
Clinical Pharmacy Note: Vancomycin Dosing per Pharmacy Subjective: Vancomycin IV to start on this 72 yo male patient for S/p high fever ?PNA ?UTI (per ID note) Objective: BUN 14/Scr 0.8 (07/23) WBC 12.3 (07/23) Temperature 98.4 ht 167.6 cm wt 72 kg Assessment/Plan: Will continue same dose of vanco 1gm IVPB q17h for today. 3rd dose today at 0900.Plan to order vanco trough level before 4th dose (ordered for 07/25 at 0130-RN has been informed to hold 0200 dose if vanco trough level above 20 mcg/ml). Pharmacy shall review the level in am & adjust the dose if needed. Will follow
--- NOTE | 2018-07-24 14:51 | NUR ---
INTERDISCIPLINARY TEAM CONFERENCE
[2018-07-24] MEDS: RIVAROXABAN 10 MG TABLET PO SCH (17:21)
[2018-07-24 17:25] VITALS: BP 125/68
--- NOTE | 2018-07-24 18:57 | NUR ---
MD Springer placed order to transfer patient to med surg ([facility]) for acute cholecystitis, MD Mcintosh notified of plan to transfer, will endorse to cloud administrator nurse to give report to med surg unit
[2018-07-24] MEDS ORDERED: CULTURELLE CAPSULE PO SCH (21:00)
[2018-07-25] MEDS ORDERED: AMLO10TA7 PO (00:10)
[2018-07-25] MEDS ORDERED: ASPI81TA31 PO (00:10)
[2018-07-25] MEDS ORDERED: DOCU100C36 PO (00:10)
[2018-07-25] MEDS ORDERED: MULT-225 PO (00:10)
[2018-07-25] MEDS ORDERED: LOSA50TA39 PO (00:10)
[2018-07-25] MEDS ORDERED: LIDO30AD10 TD (00:10)
[2018-07-25] MEDS ORDERED: PANT40TA4 PO (00:10)
[2018-07-25] MEDS ORDERED: LACT1CAP72 PO (00:10)
[2018-07-25] MEDS ORDERED: ACET650T10 PO (00:10)
[2018-07-25] MEDS ORDERED: RIVA20TA PO (00:10)
[2018-07-25] MEDS ORDERED: SIMV10TA6 PO (00:10)
[2018-07-25] MEDS ORDERED: POLY255P19 PO (00:10)
[2018-07-25] MEDS ORDERED: SERT50TA PO (00:10)
[2018-07-25] MEDS ORDERED: GLIM2TAB2 PO (00:10)
[2018-07-25] MEDS ORDERED: HYDR-3980 PO (00:10)
[2018-07-25] MEDS ORDERED: LORA1TAB PO (00:10)
[2018-07-25] MEDS ORDERED: OXYC10TA59 PO (00:10)
[2018-07-25] MEDS ORDERED: DIME118C TP (00:10)
[2018-07-25] MEDS ORDERED: METF-442 PO (00:10)
[2018-07-25] MEDS ORDERED: PIPE3.3714 IV (00:10)
[2018-07-25] MEDS ORDERED: BLOO-140 IN (00:10)
[2018-07-25] MEDS ORDERED: LIDOCAINE 5% PATCH TD SCH (09:00)
--- NOTE | 2018-07-25 14:50 | NUR ---
INTERDISCIPLINARY TEAM CONFERENCE
== END 2018-07-24 20:00 | disposition short-term general hospital (02) | DRG 559 ==
LOC: UNDOLOA 07-24 19:48 → UNDODISIN 07-27 16:15
PROVIDERS: ADMIT Physical Medicine & Rehabilitation Pain Medicine; ATTEND Physical Medicine & Rehabilitation Pain Medicine
DX: S72.142D Displaced intertrochanteric fracture of left femur, subsequent encounter for closed fracture with routine healing (principal); G92 Toxic encephalopathy; J18.9 Pneumonia, unspecified organism; D68.59 Other primary thrombophilia; E87.1 Hypo-osmolality and hyponatremia; K81.0 Acute cholecystitis; W18.30XD Fall on same level, unspecified, subsequent encounter; D53.9 Nutritional anemia, unspecified; E11.65 Type 2 diabetes mellitus with hyperglycemia; E78.5 Hyperlipidemia, unspecified; F32.9 Major depressive disorder, single episode, unspecified; F41.9 Anxiety disorder, unspecified; I10 Essential (primary) hypertension; K21.9 Gastro-esophageal reflux disease without esophagitis; R26.9 Unspecified abnormalities of gait and mobility; D50.0 Iron deficiency anemia secondary to blood loss (chronic); R19.5 Other fecal abnormalities; I05.0 Rheumatic mitral stenosis; I70.0 Atherosclerosis of aorta; K74.60 Unspecified cirrhosis of liver; Z86.73 Personal history of transient ischemic attack (TIA), and cerebral infarction without residual deficits; Z90.49 Acquired absence of other specified parts of digestive tract; Z79.4 Long term (current) use of insulin; G62.9 Polyneuropathy, unspecified; F03.90 Unspecified dementia, unspecified severity, without behavioral disturbance, psychotic disturbance, mood disturbance, and anxiety
CPT/HCPCS: 36415; 70030-TC; 70450; 71045; 76705; 83605; 83690; 83735; 84100; 85025; 87086; 92526; 92610; 97110; 97116; 97165; 97530; 97535; A4663; C1758; J1650; J1815; J2543; J3370; J3475; J3490; J7050

== ENCOUNTER 2018-07-24 20:16 | Inpatient (IN) | payer MEDICARE, OTHER ==
[~2018-07-24] VITALS: Ht 167.6 cm; Wt 66.7 kg
[2018-07-24 20:00] VITALS: BP 147/66
--- NOTE | 2018-07-24 20:00 | NUR ---
ADMITTED A 72 YEARS OLD MALE FROM ARU WITH DIAGNOSIS OF ACUTE CHOLECYSTITIS. PATIENT AAOX1-2 WITH PERIODS OF CONFUSION. FARSI SPEAKING ONLY. IN NO ACUTE DISTRESS. NO SIGNS OR SYMPTOMS OF PAIN OR SOB AT THIS TIME. IV SITE ON RIGHT FA INTACT AND PATENT. LEFT THIGH AND HIP AREA WITH INCISION SITE WITH CHANDLER INTACT AND COVER WITH MEPILEX. 1:1 SITTER ON SITE. ROUTINE ADMISSION CARE DONE. PLAN OF CARE INITIATED. SAFETY MEASURE INITIATED. CONTINUE TO MONITOR.
[~2018-07-24 20:16] MED LIST changes: +ACET-2154 PO; -DICL100G16 TP; +DOCU-141 PO; +HYDR-4076 PO; +HYDR-4354 PO; +INSU100V28 SQ; -MECL12.582 PO; +MULT1TAB73 PO; -OMEP40CA37 PO; +PANT40TA2 PO; +POLY17PO4 PO; +SIMV10TA6 PO; -SIMV20TA6 PO; -VALA500T34 PO
[2018-07-24] MEDS ORDERED: ONDANSETRON 4 MG/2 ML VIAL IV PRN (22:15)
[2018-07-24] MEDS ORDERED: Z GUARD REMEDY PASTE 57 GM TUBE TOP PRN (22:15)
[2018-07-24] MEDS ORDERED: ACETAMINOPHEN 325 MG TABLET PO PRN (22:15)
[2018-07-24] MEDS ORDERED: PIPERACILLIN/TAZOBACTAM/D5W 3.375 G in PREMIXED 1 EACH IV ONE (22:30)
[2018-07-24] MEDS: IV D5 1/2 NS 1000 ML 1,000 ML IV PRN ×2 (22:40→22:56)
[2018-07-24] MEDS ORDERED: DEXTROSE 50% 50 ML DISP.SYRIN IV PRN (23:45)
[2018-07-24] MEDS: BLOOD SUGAR DIAGNOSTIC 1 EACH STRIP VI SCH (23:52)
[2018-07-24] MEDS: MORPHINE SULFATE 4 MG/1 ML DISP.SYRIN IV PRN (23:53)
[2018-07-25] MEDS ORDERED: MULT-225 PO (00:10)
[2018-07-25] MEDS ORDERED: RIVA20TA PO (00:10)
[2018-07-25] MEDS ORDERED: PIPE3.3714 IV (00:10)
[2018-07-25] MEDS ORDERED: ASPI81TA31 PO (00:10)
[2018-07-25] MEDS ORDERED: LOSA50TA39 PO (00:10)
[2018-07-25] MEDS ORDERED: DIME118C TP (00:10)
[2018-07-25] MEDS ORDERED: AMLO10TA7 PO (00:10)
[2018-07-25] MEDS ORDERED: DOCU100C36 PO (00:10)
[2018-07-25] MEDS ORDERED: BLOO-140 IN (00:10)
[2018-07-25] MEDS ORDERED: SERT50TA PO (00:10)
[2018-07-25] MEDS ORDERED: LACT1CAP72 PO (00:10)
[2018-07-25] MEDS ORDERED: POLY255P19 PO (00:10)
[2018-07-25] MEDS ORDERED: HYDR-3980 PO (00:10)
[2018-07-25] MEDS ORDERED: GLIM2TAB2 PO (00:10)
[2018-07-25] MEDS ORDERED: OXYC10TA59 PO (00:10)
[2018-07-25] MEDS ORDERED: LIDO30AD10 TD (00:10)
[2018-07-25] MEDS ORDERED: PANT40TA4 PO (00:10)
[2018-07-25] MEDS ORDERED: LORA1TAB PO (00:10)
[2018-07-25] MEDS ORDERED: ACET650T10 PO (00:10)
[2018-07-25] MEDS ORDERED: SIMV10TA6 PO (00:10)
[2018-07-25] MEDS ORDERED: METF-442 PO (00:10)
[2018-07-25] MEDS ORDERED: VANCOMYCIN IV 1 G in PREMIXED 0 EACH IV ONE ×2 (00:30→02:00)
[2018-07-25] MEDS ORDERED: VANCOMYCIN IV 1 G in PREMIXED 0 EACH IV SCH ×2 (02:00→15:30)
[2018-07-25 04:00] VITALS: BP 138/60
--- NOTE | 2018-07-25 05:22 | NUR ---
AOX1-2 WITH PERIODS OF CONFUSION. FARSI SPEAKING ONLY. IN NO ACUTE DISTRESS. NO SIGNS OR SYMPTOMS OF SOB. MORPHINE PRN PER ORDER GIVEN FOR LEF HIP PAIN AND EFFECTIVE. IV SITE ON RIGHT FA INTACT AND PATENT. LEFT THIGH AND HIP AREA WITH INCISION SITE WITH CHANDLER INTACT AND COVER WITH MEPILEX. 1:1 SITTER ON SITE. NO ADVERSE EFFECT NOTED FROM IV ABX. CONTINUE TO MONITOR.
[2018-07-25 06:59] LABS: BASOPHILS # (AUTO) 0.1 K/uL (0.0-8.0); BASOPHILS % (AUTO) 0.5 % (0.0-2.0); EOSINOPHILS % (AUTO) 0.2 % (0.0-7.0); HEMATOCRIT 28.5 % (36.7-47.1); LYMPHOCYTES # (AUTO) 1.5 K/uL (20.0-40.0); LYMPHOCYTES % (AUTO) 9.3 % (20.5-51.5); MEAN CORPUSCULAR HEMOGLOBIN 33.9 uug (23.8-33.4); MEAN CORPUSCULAR HGB CONC 35 g/dL (32.5-36.3); MEAN CORPUSCULAR VOLUME 96.1 fL (73.0-96.2); MONOCYTES # (AUTO) 1.5 K/uL (2.0-10.0); MONOCYTES % (AUTO) 8.9 % (0.0-11.0); NEUTROPHILS # (AUTO) 13.3 K/uL (1.8-8.9); NEUTROPHILS % (AUTO) 81.1 % (38.5-71.5); PLATELET COUNT (AUTO) 378 K/uL (152-348); RED BLOOD CELL COUNT(AUTO) 2.96 MIL/uL (4.06-5.63); WHITE BLOOD COUNT (AUTO) 16.3 K/uL (3.6-10.2)
--- NOTE | 2018-07-25 07:00 | NUR ---
AOX1 WITH PERIODS OF CONFUSION. IN NO ACUTE DISTRESS. N PAIN L HIP WILL FOLLOW WITH MEDS. NO BEHAVIORAL ISSUES NOTED AT THIS TIME. IV SITE ON RIGHT FA AND LEFT WRIST INTACT AND PATENT. LEFT THIGH AND HIP AREA WITH INCISION SITE WITH CHANDLER INTACT AND COVERED WITH MEPILEX. 1:1 SITTER ON SITE. CONTINUE TO MONITOR.
[2018-07-25 07:06] LABS: ALANINE AMINOTRANSFERASE 95 U/L (16-63); ALKALINE PHOSPHATASE 168 U/L (50-136); ASPARTATE AMINOTRANSFERASE 34 U/L (15-37); BILIRUBIN,TOTAL 0.9 mg/dL (0.2-1.0); CARBON DIOXIDE 27 mmol/L (21-32); CHLORIDE 97 mmol/L (98-107); CREATININE 0.8 mg/dL (0.6-1.3); GLUCOSE 124 mg/dL (74-106); MAGNESIUM 1.6 mg/dL (1.8-2.4); PHOSPHOROUS 3.9 mg/dL (2.5-4.9); POTASSIUM 3.8 mmol/L (3.5-5.1); TOTAL PROTEIN, SERUM 6.7 g/dL (6.4-8.2); UREA NITROGEN, BLOOD 18 mg/dL (7-18)
[2018-07-25] MEDS ORDERED: PIPERACILLIN/TAZOBACTAM/D5W 3.375 G in PREMIXED 1 EACH IV SCH (07:20)
[2018-07-25] MEDS: BLOOD SUGAR DIAGNOSTIC 1 EACH STRIP VI SCH ×4 (08:09→20:23)
[2018-07-25] MEDS: MORPHINE SULFATE 4 MG/1 ML DISP.SYRIN IV PRN ×2 (10:30→16:05)
[2018-07-25 11:30] VITALS: BP 143/73
[2018-07-25] MEDS: INSULIN REGULAR, HUMAN 300 UNIT/3 ML VIAL SQ PRN ×2 (11:58→20:24)
[2018-07-25] MEDS ORDERED: HYDROCODONE/APAP 10-325 MG TABLET PO PRN (12:00)
[2018-07-25 15:00] VITALS: BP 138/76
[2018-07-25] MEDS: PIPERACILLIN/TAZOBACTAM/D5W 3.375 G in PREMIXED 1 EACH IV SCH ×2 (15:14→21:01)
[2018-07-25] MEDS: MAGNESIUM SULFATE/D5W 100 ML IV SCH ×2 (17:19→18:34)
--- NOTE | 2018-07-25 19:20 | NUR ---
AOX1 WITH PERIODS OF CONFUSION. IN NO ACUTE DISTRESS. NO SIGNS OR SYMPTOMS OF PAIN OR SOB AT THIS TIME. NO BEHAVIORAL ISSUES NOTED AT THIS TIME. IV SITE ON RIGHT FA AND LEFT WRIST INTACT AND PATENT. LEFT THIGH AND HIP AREA WITH INCISION SITE WITH CHANDLER INTACT AND COVERED WITH MEPILEX. 1:1 SITTER ON SITE. CONTINUE TO MONITOR.
--- NOTE | 2018-07-25 19:28 | NUR ---
AOX1 WITH PERIODS OF CONFUSION. IN NO ACUTE DISTRESS. PAIN CONTROLED WITH MEDS. NO BEHAVIORAL ISSUES NOTED AT THIS TIME. IV SITE ON RIGHT FA AND NEW LEFT WRIST 22G INTACT AND PATENT. LEFT THIGH AND HIP AREA WITH INCISION SITE WITH CHANDLER INTACT AND COVERED WITH MEPILEX. 1:1 SITTER ON SITE. CONTINUE TO MONITOR.
[2018-07-25 20:00] VITALS: BP 143/71
[2018-07-25] MEDS ORDERED: Medication Not On Formulary EA (Acetaminophen 650 MG) PO PRN (20:15)
[2018-07-25] MEDS ORDERED: POLYETHYLENE GLYCOL 3350 238 GM POWDER PO PRN (20:15)
--- NOTE | 2018-07-25 20:19 | NUR ---
RECEIVED NEW PO MEDICATION ORDER FROM TERRY FISH. INFORMED TERRY FISH THAT PT IS NPO. PER TERRY FISH SHE IS CONTINUING HOME MEDICATION WHICH WILL STAY ON HIS MAR BUT TO KEEP THE PATIENT NPO FOR POSSIBLE SURGERY. WILL NOT GIVE DUE PO MEDICATION FOR TONIGHT AND IN AM PER TERRY FISH.
[2018-07-25] MEDS: IV D5 1/2 NS 1000 ML 1,000 ML IV PRN (20:37)
--- NOTE | 2018-07-25 20:46 | NUR ---
NOTED RIGHT FA IV SITE LEAKING. DISCONTINUED IV LINE ON RIGHT FA.
[2018-07-25] MEDS: DOCUSATE SODIUM 100 MG CAPSULE PO SCH (21:00)
[2018-07-25] MEDS: LORAZEPAM 1 MG TABLET PO SCH (21:00)
[2018-07-25] MEDS: SIMVASTATIN 10 MG TABLET PO SCH (21:00)
[2018-07-26] MEDS: MORPHINE SULFATE 4 MG/1 ML DISP.SYRIN IV PRN ×2 (00:31→08:30)
[2018-07-26 04:57] VITALS: BP 145/66
[2018-07-26] MEDS: PIPERACILLIN/TAZOBACTAM/D5W 3.375 G in PREMIXED 1 EACH IV SCH ×3 (05:05→23:29)
[2018-07-26] MEDS: PANTOPRAZOLE SODIUM 40 MG TABLET.DR PO SCH (06:07)
--- NOTE | 2018-07-26 06:08 | NUR ---
AOX1-2 WITH PERIODS OF CONFUSION. IN NO ACUTE DISTRESS. NO SOB. MORPHINE PRN PER ORDER GIVEN FOR LEFT HIP PAIN AND EFFECTIVE. IV SITE ON LEFT WRIST INTACT AND PATENT. LEFT THIGH AND HIP AREA WITH INCISION SITE WITH CHANDLER INTACT AND COVER WITH MEPILEX. 1:1 SITTER ON SITE. NO ADVERSE REACTION NOTED FROM IV ABX. STILL ON NPO STATUS. CONTINUE TO MONITOR. Addendum: 08/06/18 at 0711 by KONRAD FOX RN Patient given Morphine 2mg IV for signs of pain on the left hip and effective. Patient unable to scale pain.
[2018-07-26] MEDS: BLOOD SUGAR DIAGNOSTIC 1 EACH STRIP VI SCH ×4 (06:36→21:50)
[2018-07-26 06:41] LABS: BASOPHILS % (AUTO) 0.1 % (0.0-2.0); EOSINOPHILS % (AUTO) 0.2 % (0.0-7.0); HEMOGLOBIN 10.1 g/dL (12.5-16.3); LYMPHOCYTES % (AUTO) 5.7 % (20.5-51.5); MEAN CORPUSCULAR HEMOGLOBIN 33.1 uug (23.8-33.4); MEAN CORPUSCULAR HGB CONC 35 g/dL (32.5-36.3); MEAN CORPUSCULAR VOLUME 95.1 fL (73.0-96.2); MONOCYTES # (AUTO) 1.3 K/uL (2.0-10.0); MONOCYTES % (AUTO) 7.4 % (0.0-11.0); NEUTROPHILS # (AUTO) 15.4 K/uL (1.8-8.9); NEUTROPHILS % (AUTO) 86.6 % (38.5-71.5); PLATELET COUNT (AUTO) 447 K/uL (152-348); RED BLOOD CELL COUNT(AUTO) 3.05 MIL/uL (4.06-5.63); WHITE BLOOD COUNT (AUTO) 17.8 K/uL (3.6-10.2)
--- NOTE | 2018-07-26 07:00 | NUR ---
BEGINNING OF SHIFT AOX1-2 WITH PERIODS OF CONFUSION. IN NO ACUTE DISTRESS. NO SOB. IV SITE ON LEFT WRIST INTACT AND PATENT. LEFT THIGH AND HIP AREA WITH INCISION SITE WITH CHANDLER INTACT AND COVER WITH MEPILEX. 1:1 SITTER ON SITE. STILL ON NPO STATUS. DISCUSSED CARE PLAN SAFETY REINFORCED, CONTINUE TO MONITOR.
[2018-07-26 07:02] LABS: CARBON DIOXIDE 28 mmol/L (21-32); CHLORIDE 96 mmol/L (98-107); CREATININE 0.9 mg/dL (0.6-1.3); GLUCOSE 187 mg/dL (74-106); MAGNESIUM 1.8 mg/dL (1.8-2.4); POTASSIUM 3.6 mmol/L (3.5-5.1)
[2018-07-26 07:22] LABS: UREA NITROGEN, BLOOD 14 mg/dL (7-18)
[2018-07-26] MEDS ORDERED: MIRALAX 17 GM POWD.PACK PO PRN (07:30)
[2018-07-26] MEDS: CULTURELLE CAPSULE PO SCH ×2 (08:28→21:00)
[2018-07-26] MEDS: MULTIVITAMINS,THERAPEUTIC TABLET PO SCH (08:29)
[2018-07-26] MEDS: LOSARTAN POTASSIUM 50 MG TABLET PO SCH ×2 (08:29→17:09)
[2018-07-26] MEDS: SERTRALINE HCL 50 MG TABLET PO SCH (08:29)
[2018-07-26] MEDS: AMLODIPINE 10 MG TABLET PO SCH (08:29)
[2018-07-26] MEDS: INSULIN REGULAR, HUMAN 300 UNIT/3 ML VIAL SQ PRN ×4 (08:33→21:41)
[2018-07-26] MEDS ORDERED: MULTIVITAMINS PO SCH (09:00)
[2018-07-26] MEDS ORDERED: LIDOCAINE 5% PATCH TD SCH (09:00)
[2018-07-26] MEDS: LIDOCAINE 5% PATCH TD SCH (11:21)
[2018-07-26 11:30] VITALS: BP 148/68
[2018-07-26] MEDS: HYDROCODONE/APAP 10-325 MG TABLET PO PRN (12:49)
[2018-07-26 15:00] VITALS: BP 137/70
--- NOTE | 2018-07-26 18:04 | NUR ---
END OF SHIFT AOX1-2 WITH PERIODS OF CONFUSION. IN NO ACUTE DISTRESS. NO SOB. IV SITE ON LEFT WRIST INTACT AND PATENT. LEFT THIGH AND HIP AREA WITH INCISION SITE WITH CHANDLER INTACT AND COVER WITH MEPILEX. MORPHINE WAS GIVEN FOR PAIN BEFORE 1200 PM BUT NOW SHOULD BE HELD FOR FUTURE DIAGNOSTIC TEST PER DOCTORS REQUEST. MEDS MARKETING BUSINESS ANALYST PER ORDER, COOPERATIVE WITH TREATMENT, FAMILY INVOLVED W CARE 1:1 SITTER ON SITE. STILL ON NPO STATUS. SAFETY REINFORCED
[2018-07-26] MEDS: IV D5 1/2 NS 1000 ML 1,000 ML IV PRN (19:09)
--- NOTE | 2018-07-26 19:57 | NUR ---
PATIENT IS AWAKE IN BED, AAOX2 CONFUSED, REMOVED HIS IV. NO S/S OF DISTRESS OR DISCOMFORT ON ASSESSMENT. 1:1 SITTER FOR SAFETY. SAFETY MEASURES IN PLACE, WILL CONTINUE TO MONITOR PATIENT
[2018-07-26 20:00] VITALS: BP 141/70
[2018-07-26] MEDS: SIMVASTATIN 10 MG TABLET PO SCH (21:00)
[2018-07-26] MEDS: DOCUSATE SODIUM 100 MG CAPSULE PO SCH (21:00)
[2018-07-26] MEDS: LORAZEPAM 1 MG TABLET PO SCH (21:49)
[2018-07-27] MEDS: PIPERACILLIN/TAZOBACTAM/D5W 3.375 G in PREMIXED 1 EACH IV SCH ×3 (06:13→22:29)
[2018-07-27] MEDS: PANTOPRAZOLE SODIUM 40 MG TABLET.DR PO SCH (06:14)
[2018-07-27] MEDS: BLOOD SUGAR DIAGNOSTIC 1 EACH STRIP VI SCH ×4 (06:20→20:39)
--- NOTE | 2018-07-27 06:45 | NUR ---
PATIENT SLEPT ON AND OFF THROUGHOUT THE SHIFT. EASILY AGITATED AND COMBATIVE WITH CARE. NO S/S OF PAIN OR ACUTE DISTRESS AT PRESENT. SITTER REMAINS AT BEDSIDE FOR SAFETY
[2018-07-27 06:46] VITALS: BP 167/73
[2018-07-27] MEDS: AMLODIPINE 10 MG TABLET PO SCH (08:07)
[2018-07-27] MEDS: CULTURELLE CAPSULE PO SCH ×2 (08:08→20:30)
[2018-07-27] MEDS: SERTRALINE HCL 50 MG TABLET PO SCH (08:08)
[2018-07-27] MEDS: LOSARTAN POTASSIUM 50 MG TABLET PO SCH ×2 (08:08→17:03)
[2018-07-27] MEDS: LIDOCAINE 5% PATCH TD SCH (08:08)
[2018-07-27] MEDS: MULTIVITAMINS,THERAPEUTIC TABLET PO SCH (08:08)
[2018-07-27] MEDS: INSULIN REGULAR, HUMAN 300 UNIT/3 ML VIAL SQ PRN ×3 (11:11→20:42)
[2018-07-27 11:55] VITALS: BP 125/72
[2018-07-27 15:05] LABS: BASOPHILS # (AUTO) 0.1 K/uL (0.0-8.0); BASOPHILS % (AUTO) 0.3 % (0.0-2.0); EOSINOPHILS % (AUTO) 0.1 % (0.0-7.0); HEMATOCRIT 29.3 % (36.7-47.1); LYMPHOCYTES # (AUTO) 1.3 K/uL (20.0-40.0); LYMPHOCYTES % (AUTO) 5.6 % (20.5-51.5); MEAN CORPUSCULAR HEMOGLOBIN 32.7 uug (23.8-33.4); MEAN CORPUSCULAR HGB CONC 34 g/dL (32.5-36.3); MEAN CORPUSCULAR VOLUME 95.5 fL (73.0-96.2); MONOCYTES # (AUTO) 1.9 K/uL (2.0-10.0); MONOCYTES % (AUTO) 8.1 % (0.0-11.0); NEUTROPHILS # (AUTO) 20.3 K/uL (1.8-8.9); NEUTROPHILS % (AUTO) 85.9 % (38.5-71.5); PLATELET COUNT (AUTO) 478 K/uL (152-348); RED BLOOD CELL COUNT(AUTO) 3.06 MIL/uL (4.06-5.63); WHITE BLOOD COUNT (AUTO) 23.7 K/uL (3.6-10.2)
[2018-07-27 15:09] LABS: CARBON DIOXIDE 27 mmol/L (21-32); CHLORIDE 96 mmol/L (98-107); CREATININE 0.8 mg/dL (0.6-1.3); GLUCOSE 163 mg/dL (74-106); MAGNESIUM 1.7 mg/dL (1.8-2.4); PHOSPHOROUS 3.3 mg/dL (2.5-4.9); POTASSIUM 3.3 mmol/L (3.5-5.1); UREA NITROGEN, BLOOD 14 mg/dL (7-18)
[2018-07-27 19:13] LABS: BILIRUBIN,DIRECT 0.6 mg/dL (0.0-0.2); BILIRUBIN,TOTAL 1.1 mg/dL (0.2-1.0)
--- NOTE | 2018-07-27 19:23 | NUR ---
PATIENT IS AWAKE IN BED, AAOX1 WITH CONFUSION AND EASILY AGITATED. NO S/S OF PAIN OR DISTRESS ON ASSESSMENT
[2018-07-27 20:00] VITALS: BP 125/70
[2018-07-27] MEDS: POTASSIUM CHLORIDE 50 ML IV SCH ×2 (20:30→21:32)
[2018-07-27] MEDS: SIMVASTATIN 10 MG TABLET PO SCH (20:31)
[2018-07-27] MEDS: LORAZEPAM 1 MG TABLET PO SCH (20:31)
[2018-07-27] MEDS: DOCUSATE SODIUM 100 MG CAPSULE PO SCH (20:31)
[2018-07-27] MEDS: HYDROCODONE/APAP 10-325 MG TABLET PO PRN (20:32)
--- NOTE | 2018-07-27 22:31 | NUR ---
Bladder scan done as ordered with 20cc residual, patient voiding well
[2018-07-28 04:30] VITALS: BP 146/79
[2018-07-28] MEDS: PIPERACILLIN/TAZOBACTAM/D5W 3.375 G in PREMIXED 1 EACH IV SCH ×2 (06:09→14:38)
[2018-07-28] MEDS: PANTOPRAZOLE SODIUM 40 MG TABLET.DR PO SCH (06:09)
[2018-07-28] MEDS: BLOOD SUGAR DIAGNOSTIC 1 EACH STRIP VI SCH ×4 (06:15→21:00)
[2018-07-28] MEDS: IV D5 1/2 NS 1000 ML 1,000 ML IV PRN (06:16)
[2018-07-28 06:20] LABS: BASOPHILS # (AUTO) 0.1 K/uL (0.0-8.0); BASOPHILS % (AUTO) 0.3 % (0.0-2.0); EOSINOPHILS % (AUTO) 0.1 % (0.0-7.0); HEMATOCRIT 30.7 % (36.7-47.1); HEMOGLOBIN 10.4 g/dL (12.5-16.3); LYMPHOCYTES # (AUTO) 1.1 K/uL (20.0-40.0); LYMPHOCYTES % (AUTO) 4.1 % (20.5-51.5); MEAN CORPUSCULAR HEMOGLOBIN 32.5 uug (23.8-33.4); MEAN CORPUSCULAR HGB CONC 34 g/dL (32.5-36.3); MONOCYTES # (AUTO) 2.2 K/uL (2.0-10.0); MONOCYTES % (AUTO) 7.9 % (0.0-11.0); NEUTROPHILS # (AUTO) 24.3 K/uL (1.8-8.9); NEUTROPHILS % (AUTO) 87.6 % (38.5-71.5); PLATELET COUNT (AUTO) 532 K/uL (152-348); WHITE BLOOD COUNT (AUTO) 27.8 K/uL (3.6-10.2)
--- NOTE | 2018-07-28 06:21 | NUR ---
PATIENT SLEPT WELL ON THIS SHIFT. NO S/S OF PAIN OR ACUTE DISTRESS AT PRESENT. PAIN MEDS GIVEN X1 WITH EFFECT. NO FURTHER CHANGES IN STATUS AT THIS TIME
--- NOTE | 2018-07-28 07:15 | NUR ---
RECEIVED REPORT FROM FIBROUS PLASTERER NURSE, PATIENT IN BED RESTLESS, AND PULLING AT LINES, , BED IN LOW POSITION, SIDE RAILS UP X2, SITTER AT BEDSIDE.
[2018-07-28 07:24] VITALS: BP 148/66
[2018-07-28 08:02] LABS: BAND % (MANUAL) 2 % (0-10); LYMPHOCYTES % (MANUAL) 8 % (20-40); MONOCYTES % (MANUAL) 6 % (2-10); NEUTROPHILS % (MANUAL) 84 % (42-75)
[2018-07-28 08:19] LABS: ALANINE AMINOTRANSFERASE 75 U/L (16-63); ALKALINE PHOSPHATASE 292 U/L (50-136); ASPARTATE AMINOTRANSFERASE 38 U/L (15-37); BILIRUBIN,TOTAL 1.3 mg/dL (0.2-1.0); CARBON DIOXIDE 25 mmol/L (21-32); CHLORIDE 98 mmol/L (98-107); CREATININE 0.7 mg/dL (0.6-1.3); GLUCOSE 128 mg/dL (74-106); POTASSIUM 3.8 mmol/L (3.5-5.1); TOTAL PROTEIN, SERUM 7.4 g/dL (6.4-8.2); UREA NITROGEN, BLOOD 14 mg/dL (7-18)
[2018-07-28] MEDS: MULTIVITAMINS,THERAPEUTIC TABLET PO SCH (09:16)
[2018-07-28] MEDS: CULTURELLE CAPSULE PO SCH ×2 (09:16→21:00)
[2018-07-28] MEDS: AMLODIPINE 10 MG TABLET PO SCH (09:16)
[2018-07-28] MEDS: LOSARTAN POTASSIUM 50 MG TABLET PO SCH ×3 (09:16→17:07)
[2018-07-28] MEDS: MORPHINE SULFATE 4 MG/1 ML DISP.SYRIN IV PRN ×2 (09:16→14:37)
[2018-07-28] MEDS: SERTRALINE HCL 50 MG TABLET PO SCH (09:16)
[2018-07-28] MEDS: LIDOCAINE 5% PATCH TD SCH (09:18)
[2018-07-28 11:51] VITALS: BP 133/65
[2018-07-28] MEDS ORDERED: KETOROLAC TROMETHAMINE 30 MG INJ IM ONE (12:38)
[2018-07-28] MEDS ORDERED: ONDANSETRON 4 MG/2 ML VIAL IV ONE (12:38)
[2018-07-28] MEDS ORDERED: GLYCOPYRROLATE 0.2 MG/ML VIAL MC ONE (12:38)
[2018-07-28] MEDS ORDERED: ETOMIDATE 20 MG/10 ML VIAL MC ONE (12:38)
[2018-07-28] MEDS ORDERED: ESMOLOL HCL 100 MG/10 ML VIAL IV ONE (12:38)
[2018-07-28] MEDS ORDERED: SEVOFLURANE 250 ML BOTTLE IH ONE (12:38)
[2018-07-28] MEDS ORDERED: DEXAMETHASONE SOD PHOSPHATE 4 MG INJ IV ONE (12:38)
[2018-07-28] MEDS ORDERED: NEOSTIGMINE METHYLSULFATE 10 MG/10 ML VIAL IV ONE (12:38)
[2018-07-28] MEDS ORDERED: IV LACTATED RINGERS SOLUTION 1,000 ML BAG IV ONE (12:38)
[2018-07-28] MEDS ORDERED: PIPERACILLIN/TAZO/D5W 3.375 GM FROZEN IV ONE (12:45)
[2018-07-28 15:34] VITALS: BP 148/76
[2018-07-28] MEDS: INSULIN REGULAR, HUMAN 300 UNIT/3 ML VIAL SQ PRN (17:25)
--- NOTE | 2018-07-28 18:30 | NUR ---
Patient was taken down to surgery after discussing with Dr. Poole
[2018-07-28] MEDS ORDERED: LIDOCAINE HCL 1% 20 ML VIAL ONE (18:31)
[2018-07-28] MEDS ORDERED: BUPIVACAINE/EPI PF 0.25% 30 ML VIAL ONE (18:32)
[2018-07-28] MEDS ORDERED: IOHEXOL 300MG/ML 50 ML VIAL ONE (19:40)
[2018-07-28] MEDS ORDERED: PIPERACILLIN/TAZOBACTAM/D5W 50 ML IV ONE (20:06)
[2018-07-28] MEDS: LORAZEPAM 1 MG TABLET PO SCH (21:00)
[2018-07-28] MEDS: DOCUSATE SODIUM 100 MG CAPSULE PO SCH (21:00)
[2018-07-28] MEDS: SIMVASTATIN 10 MG TABLET PO SCH (21:00)
--- NOTE | 2018-07-28 22:38 | NUR ---
called down to PACU to place pt on vent of CPAP with PS 10,PEEP of 5, and 50% fio2 intubated with 7.0 ET tube and at 21cm. ambu bad at pt bedside. tube secure at 21cm. vital sign stable pt asleep.
--- NOTE | 2018-07-28 23:27 | NUR ---
transported pt to CCU bed 4 on vent on CPAP with PS 10,PEEP of 5, and 50% fio2 intubated with 7.0 ET tube and secured with anchor fast at approx. 21cm. ambu bad at pt bedside. vital sign stable pt asleep. vent plugged in red outlet. no SOB noted. will cont to monitor.
[2018-07-28 23:29] LABS: BASOPHILS % (AUTO) 0.2 % (0.0-2.0); EOSINOPHILS % (AUTO) 0.1 % (0.0-7.0); HEMATOCRIT 31.2 % (36.7-47.1); HEMOGLOBIN 10.1 g/dL (12.5-16.3); LYMPHOCYTES # (AUTO) 0.6 K/uL (20.0-40.0); LYMPHOCYTES % (AUTO) 2.6 % (20.5-51.5); MEAN CORPUSCULAR HEMOGLOBIN 31.1 uug (23.8-33.4); MEAN CORPUSCULAR HGB CONC 33 g/dL (32.5-36.3); MEAN CORPUSCULAR VOLUME 95.5 fL (73.0-96.2); MONOCYTES # (AUTO) 0.7 K/uL (2.0-10.0); MONOCYTES % (AUTO) 3.2 % (0.0-11.0); NEUTROPHILS # (AUTO) 21.1 K/uL (1.8-8.9); NEUTROPHILS % (AUTO) 93.9 % (38.5-71.5); PLATELET COUNT (AUTO) 559 K/uL (152-348); RED BLOOD CELL COUNT(AUTO) 3.26 MIL/uL (4.06-5.63); WHITE BLOOD COUNT (AUTO) 22.4 K/uL (3.6-10.2)
--- NOTE | 2018-07-28 23:30 | NUR ---
patient received from OR .S/P LAPAROSCOPIC CHOLECYSTECTOMY WITH LIVER BX.patient intubated and on CPAP MODE settings are ps10 peep of 5 fio2 50% .7.0,21 lip . as per recovery patient unable to be extubated still sedated ,will keep in ICU for closer monitoring .connected patient to icu equipment at times patient open eyes and moved upper and lower extremities doesn't follow commands ,at times hold on ETT ,advised not to pull ETT ,doesn't follow commands applied sift wrist restraints . inserted f/c no.16,ngt to low intermittent wall suction placed by fast food worker .abdomen soft ,hypoactive bs in all quadrant , with x2 SIOBHAN to the right lower quadrant abdomen to bulb suction .will call [facility] or primary md for transfer orders .
[2018-07-28 23:45] LABS: ALANINE AMINOTRANSFERASE 130 U/L (16-63); ALKALINE PHOSPHATASE 344 U/L (50-136); ASPARTATE AMINOTRANSFERASE 160 U/L (15-37); BILIRUBIN,TOTAL 1.8 mg/dL (0.2-1.0); CARBON DIOXIDE 25 mmol/L (21-32); CHLORIDE 99 mmol/L (98-107); CREATININE 1.2 mg/dL (0.6-1.3); GLUCOSE 276 mg/dL (74-106); POTASSIUM 4.6 mmol/L (3.5-5.1); TOTAL PROTEIN, SERUM 7.1 g/dL (6.4-8.2); UREA NITROGEN, BLOOD 22 mg/dL (7-18)
[2018-07-28 23:47] VITALS: BP 106/58
[2018-07-29] VITALS (34 sets, daily range): BP systolic 99–158; BP diastolic 51–90
[2018-07-29] MEDS ORDERED: PROPOFOL 100 ML IV PRN (00:30)
[2018-07-29] MEDS ORDERED: IV NS 1000 ML 1,000 ML IV SCH (00:30)
--- NOTE | 2018-07-29 00:45 | NUR ---
spoked with RECREATIONAL PROGRAMS DIRECTOR TRIP informed with cpap patient is apneic ,with order to place on ac rate of 16/400/peep 5 and fio2 50% and to start propofol for sedation and comfort .
[2018-07-29] MEDS: PIPERACILLIN/TAZOBACTAM/D5W 3.375 G in PREMIXED 1 EACH IV SCH ×4 (00:53→21:46)
--- NOTE | 2018-07-29 01:00 | NUR ---
as per AERIAL PLANTING AND CULTIVATION MANAGER TRIP zelaya will see patient in am ,informed to write transfer orders .
--- NOTE | 2018-07-29 01:08 | NUR ---
CHANGE VENT SETTING TO AC16 VT450 PEEP 5 AND 50%. NURSE SAID PT IS HAVING PERIOD OF APNEA. WILL CONT TO MONITOR PT
--- NOTE | 2018-07-29 03:00 | NUR ---
increase propofol patient rr high and patient agitated see spreadsheet . .
--- NOTE | 2018-07-29 04:30 | NUR ---
am care done ,bath patient ,changed soiled liens and gown . skin care done .tolerating vent settings .
[2018-07-29 05:13] LABS: BASOPHILS # (AUTO) 0.1 K/uL (0.0-8.0); BASOPHILS % (AUTO) 0.3 % (0.0-2.0); HEMATOCRIT 29.1 % (36.7-47.1); HEMOGLOBIN 9.8 g/dL (12.5-16.3); LYMPHOCYTES # (AUTO) 0.6 K/uL (20.0-40.0); LYMPHOCYTES % (AUTO) 2.9 % (20.5-51.5); MEAN CORPUSCULAR HEMOGLOBIN 32.1 uug (23.8-33.4); MEAN CORPUSCULAR HGB CONC 34 g/dL (32.5-36.3); MEAN CORPUSCULAR VOLUME 94.8 fL (73.0-96.2); MONOCYTES # (AUTO) 1.1 K/uL (2.0-10.0); MONOCYTES % (AUTO) 4.9 % (0.0-11.0); NEUTROPHILS # (AUTO) 19.6 K/uL (1.8-8.9); NEUTROPHILS % (AUTO) 91.9 % (38.5-71.5); PLATELET COUNT (AUTO) 524 K/uL (152-348); RED BLOOD CELL COUNT(AUTO) 3.06 MIL/uL (4.06-5.63); WHITE BLOOD COUNT (AUTO) 21.4 K/uL (3.6-10.2)
[2018-07-29 05:24] LABS: ALANINE AMINOTRANSFERASE 166 U/L (16-63); ALKALINE PHOSPHATASE 316 U/L (50-136); ASPARTATE AMINOTRANSFERASE 154 U/L (15-37); BILIRUBIN,TOTAL 0.9 mg/dL (0.2-1.0); CARBON DIOXIDE 25 mmol/L (21-32); CHLORIDE 100 mmol/L (98-107); CREATININE 1.2 mg/dL (0.6-1.3); GLUCOSE 236 mg/dL (74-106); POTASSIUM 4.3 mmol/L (3.5-5.1); TOTAL PROTEIN, SERUM 6.7 g/dL (6.4-8.2); UREA NITROGEN, BLOOD 26 mg/dL (7-18)
[2018-07-29 05:24] LABS: MAGNESIUM 1.9 mg/dL (1.8-2.4); PHOSPHOROUS 6.1 mg/dL (2.5-4.9)
[2018-07-29] MEDS: PANTOPRAZOLE SODIUM 40 MG TABLET.DR PO SCH (06:14)
[2018-07-29] MEDS: BLOOD SUGAR DIAGNOSTIC 1 EACH STRIP VI SCH ×5 (06:55→21:50)
[2018-07-29] MEDS: INSULIN REGULAR, HUMAN 300 UNIT/3 ML VIAL SQ PRN ×4 (06:56→21:52)
--- NOTE | 2018-07-29 07:45 | NUR ---
Pt received on vent, with settings A/C 16, Vt 400, PEEP +5, FiO2 50%, orally intubated, ETT 7.0, in place and secure.. Alarms on / audible and functioning properly at this time.. BVM at bedside.. will continue to monitor..
--- NOTE | 2018-07-29 08:30 | NUR ---
RECEIVED A 72 Y/O MALE PT A CASE OF PT LAP CHOLECYSTECTOMY, WITH LIVER WEDGE RESECTION, PT IS UNDER SEDATION PROPOFOL @10MCG/HR. CONNECTED TO ECG MONITOR SHOWING SR, BREATHING VIA ETT SIZE 7.0, LL 21 ON AC 16,400,5, 50%. PT HAS A TWO IV LINE G20, PATENT, CLEAN DRESSING. URINATING VIA FC HAS NGT CONNECTED TO INTERMITTENT SUCTION, HAS A LT J.P DRAINAGE. PT HAD A RECENT LT FEMUR ORIF WITH CHANDLER ON LT SIDE,SURGICAL AREA CLEAN COVERED WITH MEPILEX.
[2018-07-29] MEDS: AMLODIPINE 10 MG TABLET PO SCH (09:00)
[2018-07-29] MEDS: MULTIVITAMINS,THERAPEUTIC TABLET PO SCH (09:00)
[2018-07-29] MEDS: LOSARTAN POTASSIUM 50 MG TABLET PO SCH ×3 (09:00→20:17)
[2018-07-29] MEDS: CULTURELLE CAPSULE PO SCH ×2 (09:00→20:16)
[2018-07-29] MEDS: SERTRALINE HCL 50 MG TABLET PO SCH (09:00)
[2018-07-29] MEDS: IV NS 1000 ML 1,000 ML IV PRN (09:45)
[2018-07-29] MEDS: MORPHINE SULFATE 4 MG/1 ML DISP.SYRIN IV PRN ×3 (09:52→22:24)
[2018-07-29] MEDS: LIDOCAINE 5% PATCH TD SCH (09:58)
--- NOTE | 2018-07-29 10:10 | NUR ---
SEEN BY DR YOUNG, PULMONARY CONSULT. ORDERED TO HOLD PROPOFOL FOR POSSIBLE EXTUBATION PT PUT ON CPAP MODE WITH PS 8, 50%. WILL CONTINUE TO MONITOR. ALL OTHER ORDERS RECEIVED.
--- NOTE | 2018-07-29 10:15 | NUR ---
placed on CPAP with PS 10 for weaning.. tolerating well at this time, will continue to monitor.. ABG to be drawn x15 min..
[2018-07-29 10:58] LABS: ABG BASE EXCESS -0.1 mmol/L; ABG HCO3 24.3 mmol/L; ABG PH 7.413 (7.350-7.450); ABG PO2 171.9 mmHg (75.0-100.0); ABG SITE RIGHT RADIAL; ABG TOTAL HEMOGLOBIN 10.6 G/dL (13.5-18.0); MetHb 0.3 % (0.0-1.5); O2Hb 98.1 % (94.0-97.0); VENT MODE VENT - CPAP - PS 10
[2018-07-29] MEDS ORDERED: DC PROPOFOL ONCE EXTUBATED XX PRN (11:00)
--- NOTE | 2018-07-29 11:10 | NUR ---
PATIENT EXTUBATED SMOOTHLY, PUT ON 5LPM NC TOLERATING WELL.
[2018-07-29] MEDS ORDERED: ALBUTEROL SULFATE 2.5 MG/3 ML NEBU NEB PRN (11:15)
--- NOTE | 2018-07-29 11:15 | NUR ---
Post ABG, pt extubated as ordered.. Placed on 5 Lpm nasal cannula with bubble humidifier, will continue to monitor and titrate as ordered..
--- NOTE | 2018-07-29 15:30 | NUR ---
SEEN BY TERRY PINA SURGERY. ORDERED TO CLAMP THE NGT AND HOLD SUCTION, AND IF THERE IS NO DRAINAGE TO START GIVING PATIENT ICE AND ADVANCE GRADUALLY TO WATER, THEN CLEAR LIQUIDS.
--- NOTE | 2018-07-29 16:30 | NUR ---
PATIENT PULLED OUT NGT, SILVANAPHARMACY BUYER INFORMED. NO CONCERNS GIVEN. INFORMED TO START GIVING PATIENT ICE, ICE GIVEN PT TOLERATED VERY WELL, NO SIGNS OF ASPIRATION, PT FULL AWAKE AND ALERT PUT IN UP RT POSITION WATER GIVEN TOLERATED WELL
--- NOTE | 2018-07-29 18:00 | NUR ---
PATIENT TURNED AND SIOBHAN DRAIN EMPTIED, PUT TO -VE PRESSURE. COMPLAINED OF PAIN MORPHINE IV GIVEN.
--- NOTE | 2018-07-29 20:00 | NUR ---
Awake, alert, pleasantly confused. Reality-orientation done frequently. Has tendency to pull out med. equipments despite frequent reminders. Being closely monitored in CCU. VS and rhythm stable. Resp easy and regular on nasal cannula 2L/min. IVF infusing well at right hand. SIOBHAN bulb to self suction intact with minimal drainage. Pitts cath intact. Comfort and safety measures in place. Turned/positioned q 2hr and PRN. Pt cooperative and uses overhead trapeze well. Please see CCU flowsheet for full assessment and clinical data.
[2018-07-29] MEDS: DOCUSATE SODIUM 100 MG CAPSULE PO SCH (20:16)
[2018-07-29] MEDS: LORAZEPAM 1 MG TABLET PO SCH (20:16)
[2018-07-29] MEDS: SIMVASTATIN 10 MG TABLET PO SCH (20:16)
[2018-07-29] MEDS: HYDROCODONE/APAP 10-325 MG TABLET PO PRN (20:17)
[2018-07-30] VITALS (24 sets, daily range): BP systolic 125–159; BP diastolic 61–89
[2018-07-30] MEDS: IV NS 1000 ML 1,000 ML IV PRN ×2 (04:46→20:35)
[2018-07-30 05:04] LABS: BASOPHILS # (AUTO) 0.1 K/uL (0.0-8.0); BASOPHILS % (AUTO) 0.3 % (0.0-2.0); EOSINOPHILS % (AUTO) 0.2 % (0.0-7.0); HEMATOCRIT 28.7 % (36.7-47.1); HEMOGLOBIN 9.8 g/dL (12.5-16.3); LYMPHOCYTES # (AUTO) 1.2 K/uL (20.0-40.0); LYMPHOCYTES % (AUTO) 7.5 % (20.5-51.5); MEAN CORPUSCULAR HEMOGLOBIN 32.2 uug (23.8-33.4); MEAN CORPUSCULAR HGB CONC 34 g/dL (32.5-36.3); MEAN CORPUSCULAR VOLUME 94.4 fL (73.0-96.2); MONOCYTES # (AUTO) 1.3 K/uL (2.0-10.0); MONOCYTES % (AUTO) 8.6 % (0.0-11.0); NEUTROPHILS # (AUTO) 12.9 K/uL (1.8-8.9); NEUTROPHILS % (AUTO) 83.4 % (38.5-71.5); PLATELET COUNT (AUTO) 626 K/uL (152-348); RED BLOOD CELL COUNT(AUTO) 3.04 MIL/uL (4.06-5.63); WHITE BLOOD COUNT (AUTO) 15.5 K/uL (3.6-10.2)
[2018-07-30 05:15] LABS: CARBON DIOXIDE 29 mmol/L (21-32); CHLORIDE 104 mmol/L (98-107); GLUCOSE 147 mg/dL (74-106); MAGNESIUM 1.9 mg/dL (1.8-2.4); PHOSPHOROUS 2.5 mg/dL (2.5-4.9); POTASSIUM 3.4 mmol/L (3.5-5.1); UREA NITROGEN, BLOOD 22 mg/dL (7-18)
[2018-07-30] MEDS: PIPERACILLIN/TAZOBACTAM/D5W 3.375 G in PREMIXED 1 EACH IV SCH ×3 (05:29→22:16)
--- NOTE | 2018-07-30 06:00 | NUR ---
Periods of restlessness noted needing frequent reorientation and fall/safety precautions. Stable night, able to sleep. Coughing/deep breathing well with encouragements. Please see CCU flowsheet for trends and clinical data.
[2018-07-30] MEDS: PANTOPRAZOLE SODIUM 40 MG TABLET.DR PO SCH (06:38)
[2018-07-30] MEDS: BLOOD SUGAR DIAGNOSTIC 1 EACH STRIP VI SCH ×4 (08:14→20:47)
[2018-07-30] MEDS: INSULIN REGULAR, HUMAN 300 UNIT/3 ML VIAL SQ PRN ×3 (08:33→20:50)
[2018-07-30] MEDS: MULTIVITAMINS,THERAPEUTIC TABLET PO SCH (09:16)
[2018-07-30] MEDS: AMLODIPINE 10 MG TABLET PO SCH (09:16)
[2018-07-30] MEDS: CULTURELLE CAPSULE PO SCH ×2 (09:17→20:40)
[2018-07-30] MEDS: SERTRALINE HCL 50 MG TABLET PO SCH (09:17)
[2018-07-30] MEDS: LIDOCAINE 5% PATCH TD SCH (09:17)
[2018-07-30 10:27] LABS: ABG BASE EXCESS 0.5 mmol/L; ABG PCO2 39.3 mmHg (35.0-45.0); ABG PH 7.421 (7.350-7.450); ABG PO2 85.3 mmHg (75.0-100.0); ABG SITE RIGHT RADIAL; ABG TOTAL HEMOGLOBIN 9.8 G/dL (13.5-18.0); COHb 1.8 % (0.5-1.5); MetHb 0.4 % (0.0-1.5); O2Hb 94.5 % (94.0-97.0)
[2018-07-30] MEDS: MORPHINE SULFATE 4 MG/1 ML DISP.SYRIN IV PRN (11:05)
--- NOTE | 2018-07-30 13:10 | NUR ---
Physical therapy here to see pt.
[2018-07-30] MEDS: POTASSIUM CHLORIDE 50 ML IV SCH ×2 (15:36→16:55)
[2018-07-30] MEDS: LOSARTAN POTASSIUM 50 MG TABLET PO SCH (16:59)
--- NOTE | 2018-07-30 20:00 | NUR ---
Drowsy, readily arousable. Speaks mostly Farsi, understands some Latvian. All teachings frequently reinforced. Pt restless, disoriented, tends to reach for medical equipments and attempts to pull out. Safety precautions observed. Fall precautions maintained. Stable VS and rhythm. Resp easy and regular on nasal cannula 2L/min. Needs coaching on use of IS. Turned/positioned a qhr and PRN. Using overbed frame trapeze fairly well. Nursing comfort measures observed at all times. Please see CCU flowsheet for full assessment and clinical data.
[2018-07-30] MEDS: DOCUSATE SODIUM 100 MG CAPSULE PO SCH (20:40)
[2018-07-30] MEDS: SIMVASTATIN 10 MG TABLET PO SCH (20:40)
[2018-07-30] MEDS: LORAZEPAM 1 MG TABLET PO SCH (20:40)
[2018-07-30] MEDS: HYDROCODONE/APAP 10-325 MG TABLET PO PRN (20:41)
[2018-07-31] VITALS (11 sets, daily range): BP systolic 100–149; BP diastolic 56–81
[2018-07-31 05:04] LABS: BASOPHILS # (AUTO) 0.1 K/uL (0.0-8.0); BASOPHILS % (AUTO) 0.5 % (0.0-2.0); EOSINOPHILS % (AUTO) 0.4 % (0.0-7.0); HEMATOCRIT 25.6 % (36.7-47.1); HEMOGLOBIN 8.6 g/dL (12.5-16.3); LYMPHOCYTES # (AUTO) 1.3 K/uL (20.0-40.0); LYMPHOCYTES % (AUTO) 11.1 % (20.5-51.5); MEAN CORPUSCULAR HEMOGLOBIN 31.9 uug (23.8-33.4); MEAN CORPUSCULAR HGB CONC 34 g/dL (32.5-36.3); MEAN CORPUSCULAR VOLUME 94.6 fL (73.0-96.2); NEUTROPHILS # (AUTO) 9.6 K/uL (1.8-8.9); PLATELET COUNT (AUTO) 601 K/uL (152-348); RED BLOOD CELL COUNT(AUTO) 2.71 MIL/uL (4.06-5.63)
[2018-07-31 05:16] LABS: CARBON DIOXIDE 28 mmol/L (21-32); CHLORIDE 104 mmol/L (98-107); CREATININE 0.8 mg/dL (0.6-1.3); GLUCOSE 140 mg/dL (74-106); MAGNESIUM 1.6 mg/dL (1.8-2.4); PHOSPHOROUS 3.2 mg/dL (2.5-4.9); POTASSIUM 3.7 mmol/L (3.5-5.1); UREA NITROGEN, BLOOD 15 mg/dL (7-18)
[2018-07-31] MEDS: PIPERACILLIN/TAZOBACTAM/D5W 3.375 G in PREMIXED 1 EACH IV SCH ×3 (05:21→21:03)
[2018-07-31] MEDS: HYDROCODONE/APAP 10-325 MG TABLET PO PRN (05:34)
--- NOTE | 2018-07-31 06:00 | NUR ---
Stable night. Periods of restlessness, needing reorientation. Safety and fall precautions observed at all times. Nursing comfort measures maintained. Please see CCU flowsheet for trends and clinical data.
[2018-07-31] MEDS: PANTOPRAZOLE SODIUM 40 MG TABLET.DR PO SCH (06:15)
[2018-07-31] MEDS: MULTIVITAMINS,THERAPEUTIC TABLET PO SCH (07:54)
[2018-07-31] MEDS: SERTRALINE HCL 50 MG TABLET PO SCH (07:54)
[2018-07-31] MEDS: CULTURELLE CAPSULE PO SCH ×2 (07:54→20:56)
[2018-07-31] MEDS: AMLODIPINE 10 MG TABLET PO SCH (07:55)
[2018-07-31] MEDS: LOSARTAN POTASSIUM 50 MG TABLET PO SCH ×2 (07:55→16:51)
[2018-07-31] MEDS: BLOOD SUGAR DIAGNOSTIC 1 EACH STRIP VI SCH ×4 (07:55→21:08)
[2018-07-31] MEDS: LIDOCAINE 5% PATCH TD SCH (07:56)
[2018-07-31] MEDS: INSULIN REGULAR, HUMAN 300 UNIT/3 ML VIAL SQ PRN ×3 (08:33→16:56)
--- NOTE | 2018-07-31 10:40 | NUR ---
Physical therapy here to see pt.
--- NOTE | 2018-07-31 11:16 | NUR ---
WOUND CARE CONSULT: PT PRESENTS WITH RED LESIONS TO LOWER BACK/SACRAL AREA, UNKNOWN ETIOLOGY. SOME LESIONS ARE DRY AND SOME ARE MOIST. DEFER TO MD FOR LESIONS. SIOBHAN DRAIN FOLLOWED BY SURGICAL TEAM. [facility]. WILL SEE PRN.
--- NOTE | 2018-07-31 13:34 | NUR ---
TERRY Alvarado here to see pt and remove SIOBHAN drain. Addendum: 07/31/18 at 1334 by JUANITA MICHELLE RN Full report given and new orders received.
[2018-07-31] MEDS: MAGNESIUM SULFATE/D5W 100 ML IV SCH ×2 (13:50→15:47)
--- NOTE | 2018-07-31 17:40 | NUR ---
Pt reassignment and full SBAR report given to MICHAEL Stearns. Pt transferred to room 209-T. Pt stable and nad noted upon transfer.
--- NOTE | 2018-07-31 17:43 | NUR ---
RECEIVED PATIENT BY BED FROM THE CCU 72 YEARS OLD MALE TO ROOM 209 PATIENT IS AWAKE ALERT AWARE BUT WITH LANGUAGE BARRIER ABLE TO FOLLOW COMMANDS WITH GESTURES AND SOME BROKEN ARABIC LANGUAGE.HE IS ON FIRST STEP MATTRASS HE IS ON ROOM AIR WITH NO SHORTNESS OF BREATH AT THIS TIME SAT ON ROOM AIR IS 96PERCENT.ZOSYN IN PROGRESS THAT WAS STARTED FROM THE ICU.HE HAS IVF OF NS ALSO IN PROGRESS AT 75 ML/HR.LEFT HIP/THIGH WITH MEPILEX DRESSING INTACT ALSO WITH DRY DRESSING TO HIS RIGHT ABDOMEN INTACT.NO S/S OF HYPO/HYPERGLYCEMIC REACTIONS AT THIS TIME MADE COMFORTABLE AND WILL CONTINUE TO OBSERVE.
[2018-07-31] MEDS: IV NS 1000 ML 1,000 ML IV PRN (18:35)
--- NOTE | 2018-07-31 19:30 | NUR ---
RECEIVED PT IN BED, IN NO ACUTE SIGNS OF DISTRESS. ON 1:1 SITTER FOR SAFETY. NO C/O PAIN AT THIS TIME. SR ON TELE.
[2018-07-31] MEDS: SIMVASTATIN 10 MG TABLET PO SCH (20:56)
[2018-07-31] MEDS: LORAZEPAM 1 MG TABLET PO SCH (20:56)
[2018-07-31] MEDS: DOCUSATE SODIUM 100 MG CAPSULE PO SCH (20:56)
[2018-07-31] MEDS: MORPHINE SULFATE 4 MG/1 ML DISP.SYRIN IV PRN (23:59)
[2018-08-01] VITALS: BP 156/72
[2018-08-01 04:00] VITALS: BP 142/64
[2018-08-01] MEDS: PIPERACILLIN/TAZOBACTAM/D5W 3.375 G in PREMIXED 1 EACH IV SCH ×3 (05:21→21:15)
--- NOTE | 2018-08-01 06:14 | NUR ---
PT IS RESTING IN BED, WAS GIVEN WITH MORPHINE LAST NIGHT FOR LEFT THIGHT PAIN. SLEPT ON AND OFF. ON SR , HR 73 ON TELE MONITOR. 1:1 SITTER AT BEDSIDE FOR SAFETY.
[2018-08-01] MEDS: PANTOPRAZOLE SODIUM 40 MG TABLET.DR PO SCH (06:19)
[2018-08-01] MEDS: BLOOD SUGAR DIAGNOSTIC 1 EACH STRIP VI SCH ×4 (06:30→21:14)
[2018-08-01 07:25] LABS: BASOPHILS # (AUTO) 0.1 K/uL (0.0-8.0); BASOPHILS % (AUTO) 0.5 % (0.0-2.0); EOSINOPHILS # (AUTO) 0.1 K/uL (0.0-0.7); EOSINOPHILS % (AUTO) 0.5 % (0.0-7.0); HEMATOCRIT 27.8 % (36.7-47.1); HEMOGLOBIN 9.4 g/dL (12.5-16.3); LYMPHOCYTES # (AUTO) 1.3 K/uL (20.0-40.0); LYMPHOCYTES % (AUTO) 9.9 % (20.5-51.5); MEAN CORPUSCULAR HEMOGLOBIN 31.7 uug (23.8-33.4); MEAN CORPUSCULAR HGB CONC 34 g/dL (32.5-36.3); MEAN CORPUSCULAR VOLUME 93.8 fL (73.0-96.2); MONOCYTES # (AUTO) 0.8 K/uL (2.0-10.0); MONOCYTES % (AUTO) 6.4 % (0.0-11.0); NEUTROPHILS # (AUTO) 10.7 K/uL (1.8-8.9); NEUTROPHILS % (AUTO) 82.7 % (38.5-71.5); PLATELET COUNT (AUTO) 679 K/uL (152-348); RED BLOOD CELL COUNT(AUTO) 2.96 MIL/uL (4.06-5.63)
[2018-08-01 07:31] LABS: ALANINE AMINOTRANSFERASE 96 U/L (16-63); ALKALINE PHOSPHATASE 260 U/L (50-136); ASPARTATE AMINOTRANSFERASE 39 U/L (15-37); BILIRUBIN,TOTAL 0.7 mg/dL (0.2-1.0); CARBON DIOXIDE 29 mmol/L (21-32); CHLORIDE 102 mmol/L (98-107); CREATININE 0.7 mg/dL (0.6-1.3); GLUCOSE 133 mg/dL (74-106); MAGNESIUM 1.8 mg/dL (1.8-2.4); PHOSPHOROUS 2.9 mg/dL (2.5-4.9); POTASSIUM 3.4 mmol/L (3.5-5.1); TOTAL PROTEIN, SERUM 6.6 g/dL (6.4-8.2); UREA NITROGEN, BLOOD 12 mg/dL (7-18)
[2018-08-01] MEDS: CULTURELLE CAPSULE PO SCH ×2 (08:22→20:18)
[2018-08-01] MEDS: SERTRALINE HCL 50 MG TABLET PO SCH (08:22)
[2018-08-01] MEDS: MULTIVITAMINS,THERAPEUTIC TABLET PO SCH (08:23)
[2018-08-01] MEDS: LOSARTAN POTASSIUM 50 MG TABLET PO SCH ×2 (08:23→16:55)
[2018-08-01] MEDS: AMLODIPINE 10 MG TABLET PO SCH (08:24)
[2018-08-01] MEDS: LIDOCAINE 5% PATCH TD SCH (08:24)
[2018-08-01] MEDS: INSULIN REGULAR, HUMAN 300 UNIT/3 ML VIAL SQ PRN ×4 (08:30→21:37)
--- NOTE | 2018-08-01 09:07 | NUR ---
PATIENT ASLEEP IN BED EASILY AROUSABLE. 1:1 SITTER. JAPANESE SPEAKING. PATIENT ABLE TO TAKE MORNING MEDICATIONS. DENIES PAIN. ON TELEMETRY SR. RT. HAND IV HL, FLUSHING WELL AND INTACT. LT. FA IVF NS AT 75CC/HR. ALL NEEDS MET AT THIS TIME. WILL CONTINUE TO MONITOR.
[2018-08-01 12:00] VITALS: BP 123/72
[2018-08-01] MEDS ORDERED: POTASSIUM CHLORIDE 20 MEQ TAB.PRT.SR PO ONE (14:30)
[2018-08-01 15:58] VITALS: BP 144/69
[2018-08-01 19:30] VITALS: BP 144/78
--- NOTE | 2018-08-01 19:31 | NUR ---
PATIENT RESTING IN BED. NO ACUTE SIGNS OF DISTRESS. ON 1:1 SITTER FOR SAFETY. NO C/O PAIN AT THIS TIME. SR ON TELE. VITAL SIGNS STABLE THROUGHOUT THE SHIFT.
[2018-08-01] MEDS: DOCUSATE SODIUM 100 MG CAPSULE PO SCH (20:18)
[2018-08-01] MEDS: SIMVASTATIN 10 MG TABLET PO SCH (20:18)
[2018-08-01] MEDS: LORAZEPAM 1 MG TABLET PO SCH (20:18)
[2018-08-01] MEDS: IV NS 1000 ML 1,000 ML IV PRN (20:25)
[2018-08-01] MEDS: MORPHINE SULFATE 4 MG/1 ML DISP.SYRIN IV PRN (22:08)
[2018-08-02] VITALS: BP 140/72
[2018-08-02 04:05] VITALS: BP 149/75
[2018-08-02] MEDS: PANTOPRAZOLE SODIUM 40 MG TABLET.DR PO SCH (05:44)
[2018-08-02] MEDS: BLOOD SUGAR DIAGNOSTIC 1 EACH STRIP VI SCH ×3 (05:44→17:06)
[2018-08-02] MEDS: PIPERACILLIN/TAZOBACTAM/D5W 3.375 G in PREMIXED 1 EACH IV SCH ×2 (05:44→14:25)
--- NOTE | 2018-08-02 06:29 | NUR ---
Fairly rested, no acute resp distress. Tele sinus rhythm. Assisted w/ all needs. 1:1 sitter in room for safety.
[2018-08-02 06:58] LABS: CARBON DIOXIDE 27 mmol/L (21-32); CHLORIDE 102 mmol/L (98-107); CREATININE 0.8 mg/dL (0.6-1.3); GLUCOSE 143 mg/dL (74-106); MAGNESIUM 1.7 mg/dL (1.8-2.4); PHOSPHOROUS 3.3 mg/dL (2.5-4.9); POTASSIUM 3.7 mmol/L (3.5-5.1); UREA NITROGEN, BLOOD 14 mg/dL (7-18)
[2018-08-02 07:00] VITALS: BP 163/70
[2018-08-02 07:06] LABS: BASOPHILS # (AUTO) 0.1 K/uL (0.0-8.0); BASOPHILS % (AUTO) 0.5 % (0.0-2.0); EOSINOPHILS # (AUTO) 0.1 K/uL (0.0-0.7); EOSINOPHILS % (AUTO) 0.4 % (0.0-7.0); HEMATOCRIT 28.8 % (36.7-47.1); HEMOGLOBIN 9.8 g/dL (12.5-16.3); LYMPHOCYTES # (AUTO) 1.5 K/uL (20.0-40.0); LYMPHOCYTES % (AUTO) 11.2 % (20.5-51.5); MEAN CORPUSCULAR HEMOGLOBIN 31.7 uug (23.8-33.4); MEAN CORPUSCULAR HGB CONC 34 g/dL (32.5-36.3); MEAN CORPUSCULAR VOLUME 93.3 fL (73.0-96.2); MONOCYTES # (AUTO) 0.8 K/uL (2.0-10.0); MONOCYTES % (AUTO) 6.2 % (0.0-11.0); NEUTROPHILS # (AUTO) 10.6 K/uL (1.8-8.9); NEUTROPHILS % (AUTO) 81.7 % (38.5-71.5); PLATELET COUNT (AUTO) 693 K/uL (152-348); RED BLOOD CELL COUNT(AUTO) 3.08 MIL/uL (4.06-5.63)
--- NOTE | 2018-08-02 07:51 | NUR ---
Intermittently awake, confused, pulling tubings, with 1:1 sitter at bedside. IVF infusing.
--- NOTE | 2018-08-02 08:04 | NUR ---
Abdominal Lap sites clean and dry. RUQ dressing dry and intact.
[2018-08-02] MEDS: LOSARTAN POTASSIUM 50 MG TABLET PO SCH ×2 (09:22→17:07)
[2018-08-02] MEDS: LIDOCAINE 5% PATCH TD SCH (09:23)
[2018-08-02] MEDS: AMLODIPINE 10 MG TABLET PO SCH (09:23)
[2018-08-02] MEDS: CULTURELLE CAPSULE PO SCH (09:23)
[2018-08-02] MEDS: SERTRALINE HCL 50 MG TABLET PO SCH (09:23)
[2018-08-02] MEDS: MULTIVITAMINS,THERAPEUTIC TABLET PO SCH (09:23)
--- NOTE | 2018-08-02 10:58 | NUR ---
Awake, more alert. Assisted out of bed by PT x 2 ambulated outside of room, compliant of weight bearing status. Family at bedside.
[2018-08-02 12:00] VITALS: BP 149/75
--- NOTE | 2018-08-02 12:29 | NUR ---
Refusing to eat lunch with only couple of bites from breakfast. BG 164, Insulin sliding scale not given.
[2018-08-02] MEDS: MAGNESIUM SULFATE/D5W 100 ML IV SCH ×2 (14:01→15:16)
--- NOTE | 2018-08-02 14:15 | NUR ---
Mg 1.7, Magnesium IV given as ordered.
[2018-08-02 16:19] VITALS: BP 140/72
[2018-08-02 17:07] VITALS: BP 140/72
[2018-08-02] MEDS: INSULIN REGULAR, HUMAN 300 UNIT/3 ML VIAL SQ PRN (17:08)
--- NOTE | 2018-08-02 17:32 | NUR ---
With discharge order to ARU. Called twice to ARU to give report not yet ready but will accept patient by 1800.
--- NOTE | 2018-08-02 18:06 | NUR ---
Report given to Lety RODRIGUEZ. Patient transported by bed in fair condition, not in distress, afebrile
== END 2018-08-02 18:15 | DRG 417 ==
LOC: MED 20:16 → CCU 07-28 23:00 → TELE 07-31 17:39 → MED 08-02 10:20
PROVIDERS: ADMIT Nurse Practitioner Acute Care; ATTEND Registered Nurse
PROC: 0FT44ZZ Resection of Gallbladder, Percutaneous Endoscopic Approach (ICD-10-PCS; principal; 2018-07-28)
PROC: 0FB04ZX Excision of Liver, Percutaneous Endoscopic Approach, Diagnostic (ICD-10-PCS; 2018-07-28)
PROC: BF001ZZ Plain Radiography of Bile Ducts using Low Osmolar Contrast (ICD-10-PCS; 2018-07-28)
PROC: 0D9670Z Drainage of Stomach with Drainage Device, Via Natural or Artificial Opening (ICD-10-PCS; 2018-07-28)
DX: K81.2 Acute cholecystitis with chronic cholecystitis (principal); G92 Toxic encephalopathy; J15.6 Pneumonia due to other Gram-negative bacteria; E87.1 Hypo-osmolality and hyponatremia; K82.0 Obstruction of gallbladder; K82.A1 Gangrene of gallbladder in cholecystitis; D63.8 Anemia in other chronic diseases classified elsewhere; K21.9 Gastro-esophageal reflux disease without esophagitis; E78.5 Hyperlipidemia, unspecified; D47.3 Essential (hemorrhagic) thrombocythemia; Z79.01 Long term (current) use of anticoagulants; E88.09 Other disorders of plasma-protein metabolism, not elsewhere classified; F41.9 Anxiety disorder, unspecified; F32.9 Major depressive disorder, single episode, unspecified; S72.92XD Unspecified fracture of left femur, subsequent encounter for closed fracture with routine healing; X58.XXXD Exposure to other specified factors, subsequent encounter; E11.42 Type 2 diabetes mellitus with diabetic polyneuropathy; Z79.4 Long term (current) use of insulin; G31.84 Mild cognitive impairment of uncertain or unknown etiology; E87.6 Hypokalemia; E11.40 Type 2 diabetes mellitus with diabetic neuropathy, unspecified; N40.0 Benign prostatic hyperplasia without lower urinary tract symptoms; I70.0 Atherosclerosis of aorta; E83.42 Hypomagnesemia; I10 Essential (primary) hypertension
CPT/HCPCS: 36415; 36600; 51798; 70030-TC; 71045; 74018; 78445; 83605; 83735; 84100; 85025; 87070; 93005; 94002; 97110; 97116; 97165; 97530; A4663; A9537; C1758; G0378; J1100; J1815; J1885; J2270; J2405; J2543; J2710; J3370; J3475; J3480; J3490; J7030; J7040; J7120; Q9967

== ENCOUNTER 2018-08-02 16:19 | Inpatient (IN) | payer MEDICARE, OTHER ==
[~2018-08-02] VITALS: Ht 167.6 cm; Wt 66.7 kg
[~2018-08-02 16:19] MED LIST changes: -ACET-2154 PO; +ACET650T10 PO; +BLOO-140 IN; +DIME118C TP; -DOCU-141 PO; +DOCU100C36 PO; -GABA-534 PO; +HYDR-3980 PO; -HYDR-4076 PO; -HYDR-4354 PO; -INSU100V28 SQ; +LACT1CAP72 PO; +LIDO30AD10 TD; +MULT-225 PO; -MULT1TAB73 PO; +OXYC10TA59 PO; -PANT40TA2 PO; +PANT40TA4 PO; +PIPE3.3714 IV; -POLY17PO4 PO; +POLY255P19 PO; +RIVA20TA PO; +SERT50TA PO; -SERT50TA12 PO
--- NOTE | 2018-08-02 18:42 | NUR ---
TRANSFERRED FROM MED/SURG VIA BED ON AIR MATTRESS. IN NO ACUTE DISTRESS. VSS. ORIENTED TO ROOM AND SURROUNDINGS WITH SITTER AT BEDSIDE.
[2018-08-02 19:52] VITALS: BP 155/71
[2018-08-02] MEDS ORDERED: POLYETHYLENE GLYCOL 3350 238 GM POWDER PO PRN (20:00)
[2018-08-02] MEDS ORDERED: Medication Not On Formulary EA (Oxycodone Hcl (Oxycontin) 10 MG) PO PRN (20:00)
[2018-08-02] MEDS ORDERED: Medication Not On Formulary EA (Acetaminophen 650 MG) PO PRN (20:00)
[2018-08-02] MEDS ORDERED: DEXTROSE 50% 50 ML DISP.SYRIN IV PRN (20:15)
[2018-08-02] MEDS: BLOOD SUGAR DIAGNOSTIC 1 EACH STRIP VI SCH (20:41)
[2018-08-02] MEDS ORDERED: OXYCODONE HCL 10 MG TAB.SR.12H PO PRN (21:00)
[2018-08-02] MEDS: DOCUSATE SODIUM 100 MG CAPSULE PO SCH (21:11)
[2018-08-02] MEDS: LORAZEPAM 1 MG TABLET PO SCH (21:11)
[2018-08-02] MEDS: CULTURELLE CAPSULE PO SCH (21:11)
[2018-08-02] MEDS: SIMVASTATIN 10 MG TABLET PO SCH (21:11)
[2018-08-02] MEDS: INSULIN REGULAR, HUMAN 300 UNIT/3 ML VIAL SQ PRN (21:18)
[2018-08-02] MEDS: PIPERACILLIN/TAZOBACTAM/D5W 3.375 G in PREMIXED 1 EACH IV SCH (21:24)
--- NOTE | 2018-08-02 21:45 | NUR ---
SBAR received from day shift nurse. Patient alert and oriented x 2-3. Sitter at bedside. Admission assessment competed. Pressure mattress present. Pitts draining yellow urine. IV site in left and right forearm. Multiple surgical wounds noted and photographs taken. All due medications given-tolerated well. IV Zosyn running. No adverse reactions. Call light and frequently used items within reach. Will continue to monitor.
[2018-08-03] MEDS: PIPERACILLIN/TAZOBACTAM/D5W 3.375 G in PREMIXED 1 EACH IV SCH (05:13)
[2018-08-03 06:03] VITALS: BP 155/82
[2018-08-03] MEDS: PANTOPRAZOLE SODIUM 40 MG TABLET.DR PO SCH ×2 (06:13→07:00)
[2018-08-03] MEDS: BLOOD SUGAR DIAGNOSTIC 1 EACH STRIP VI SCH ×4 (06:31→21:30)
--- NOTE | 2018-08-03 06:47 | NUR ---
No SOB or pain noted over night. Patient restless during shift. 1:1 sitter maintained during night. All due medications given-tolerated well. Pitts draining yellow urine. Skin integrity maintained throughout shift. Pressure mattress in place. Side rails up bilaterally for safety. Will endorse to morning shift accordingly.
[2018-08-03] MEDS ORDERED: MULTIVITAMINS PO SCH (09:00)
[2018-08-03] MEDS ORDERED: Medication Not On Formulary EA (Metformin Hcl 1,000 MG) PO SCH (09:00)
[2018-08-03] MEDS: GLIMEPIRIDE 2 MG TABLET PO SCH (09:02)
[2018-08-03] MEDS: ASPIRIN 81 MG TAB.CHEW PO SCH (09:02)
[2018-08-03] MEDS: LOSARTAN POTASSIUM 50 MG TABLET PO SCH ×2 (09:02→16:51)
[2018-08-03] MEDS: LIDOCAINE 5% PATCH TD SCH (09:03)
[2018-08-03] MEDS: AMLODIPINE 10 MG TABLET PO SCH (09:03)
[2018-08-03] MEDS: CULTURELLE CAPSULE PO SCH ×2 (09:03→21:00)
[2018-08-03] MEDS: SERTRALINE HCL 50 MG TABLET PO SCH (09:03)
[2018-08-03] MEDS: METFORMIN HCL 500 MG TABLET PO SCH ×2 (09:08→16:51)
[2018-08-03] MEDS: MULTIVITAMINS,THERAPEUTIC TABLET PO SCH (09:08)
[2018-08-03 10:08] VITALS: BP 197/82
[2018-08-03] MEDS: INSULIN REGULAR, HUMAN 300 UNIT/3 ML VIAL SQ PRN (11:16)
--- NOTE | 2018-08-03 13:06 | NUR ---
Patient had 4x watery medium foul smell bowel movement. DNP Magan notifed. ordered stool cdiff, collected and sent to lab. ordered for isolation. will continue monitor
--- NOTE | 2018-08-03 13:17 | NUR ---
INTERDISCIPLINARY TEAM CONFERENCE
[2018-08-03 16:41] VITALS: BP 148/76
[2018-08-03] MEDS: ACETAMINOPHEN 325 MG TABLET PO PRN (16:51)
[2018-08-03] MEDS: Z GUARD REMEDY PASTE 57 GM TUBE TOP SCH ×2 (16:52→21:31)
[2018-08-03] MEDS: RIVAROXABAN 10 MG TABLET PO SCH (17:06)
--- NOTE | 2018-08-03 19:55 | NUR ---
Patient received in bed. AAO x2, Confused. Able to make needs known. No sign of acute distress or SOB was noted. On room air. Complained of pain at the right side of abdomen rated 8/10. IV in right FA and left FA, G 22, no sign of inflammation. Pitts catheter in place, draining well with yellow urine. On isolation for possible C-def. Patient assessed. Safety measures maintained. Fall prevention observed. Bed in low position, brake and alarm on, side rails up x2 for safety. Call light and personal belongings within reach. Will continue to monitor.
[2018-08-03 20:00] VITALS: BP 132/72
[2018-08-03] MEDS: SIMVASTATIN 10 MG TABLET PO SCH (21:31)
[2018-08-03] MEDS: HYDROCODONE/APAP 10-325 MG TABLET PO PRN (21:31)
[2018-08-03] MEDS: LORAZEPAM 1 MG TABLET PO SCH (21:31)
[2018-08-03] MEDS: DOCUSATE SODIUM 100 MG CAPSULE PO SCH (21:31)
[2018-08-04 06:30] VITALS: BP 138/78
[2018-08-04] MEDS: PANTOPRAZOLE SODIUM 40 MG TABLET.DR PO SCH (06:33)
[2018-08-04] MEDS: BLOOD SUGAR DIAGNOSTIC 1 EACH STRIP VI SCH ×4 (06:34→21:14)
--- NOTE | 2018-08-04 06:59 | NUR ---
End of the shift note Patient was stable throughout the shift and had a good sleep last night. No sign of acute distress or SOB noted. Complained of pain on his abdomen, [place] 10-325 tab given, pain reassess again. Medications given as ordered and well tolerated. Keep him clean and dry. Pitts catheter in place, draining well mark urine. Accu checked at 2100 BS: 93, no coverage based on sliding scale. Accu check at 0630 BS: 108. IV in right and left hand G 22, no sign of inflammation. Safety measures maintained. Hourly rounds done. All needs anticipated promptly. Fall precaution maintained. Bed in low position, brake and alarm on, side rails up x2. Call light and personal belongings within reach. Continue to monitor and will endorse to the day shift nurse accordingly.
[2018-08-04 08:00] VITALS: BP 140/60
[2018-08-04] MEDS: AMLODIPINE 10 MG TABLET PO SCH (08:48)
[2018-08-04] MEDS: METFORMIN HCL 500 MG TABLET PO SCH ×2 (08:49→17:20)
[2018-08-04] MEDS: CULTURELLE CAPSULE PO SCH ×2 (08:49→20:16)
[2018-08-04] MEDS: SERTRALINE HCL 50 MG TABLET PO SCH (08:49)
[2018-08-04] MEDS: LOSARTAN POTASSIUM 50 MG TABLET PO SCH ×2 (08:49→17:21)
[2018-08-04] MEDS: MULTIVITAMINS,THERAPEUTIC TABLET PO SCH (08:49)
[2018-08-04] MEDS: ASPIRIN 81 MG TAB.CHEW PO SCH (08:49)
[2018-08-04] MEDS: GLIMEPIRIDE 2 MG TABLET PO SCH (08:49)
[2018-08-04] MEDS: LIDOCAINE 5% PATCH TD SCH (08:49)
[2018-08-04] MEDS: Z GUARD REMEDY PASTE 57 GM TUBE TOP SCH ×2 (08:50→20:28)
--- NOTE | 2018-08-04 10:46 | NUR ---
Patient noted lower back excoriation, ordered wound consult. cleanse with NS, pat dry, applied small amount of hydrogel and covered with mepilex. no behavioral problem noted. will continue monitor
[2018-08-04 15:35] VITALS: BP 123/64
[2018-08-04] MEDS: ACETAMINOPHEN 325 MG TABLET PO PRN (15:52)
[2018-08-04] MEDS: INSULIN REGULAR, HUMAN 300 UNIT/3 ML VIAL SQ PRN (16:02)
[2018-08-04] MEDS: RIVAROXABAN 10 MG TABLET PO SCH (17:30)
[2018-08-04 19:45] VITALS: BP 146/70
[2018-08-04] MEDS: DOCUSATE SODIUM 100 MG CAPSULE PO SCH (20:16)
[2018-08-04] MEDS: SIMVASTATIN 10 MG TABLET PO SCH (20:16)
[2018-08-04] MEDS: LORAZEPAM 1 MG TABLET PO SCH (20:16)
[2018-08-04] MEDS: HYDROCODONE/APAP 10-325 MG TABLET PO PRN (20:18)
--- NOTE | 2018-08-04 21:24 | NUR ---
Received pt resting in bed and watching TV. Sitter at bedside. No acute distress noted. C/o pain on left hip 02/09, [place] PRN given. Blood sugar of 41, asymptomatic, 1 cup of orange juice and a slice of tuna sandwich given. As per day shift RN, pt doesn't eat a lot here since he does not like the food, but family might bring him some home food tomorrow. Rechecked blood sugar after 1 hour and is now 90. Teachings provided to the pt regarding diet and was cooperative. Pitts catheter, patent and intact, draining with yellow colored urine. Pt's room was changed from 124A to 107 and has 2:1 sitter. Air mattress in place. Turned and repositioned. Both heels offloaded. Safety measures maintained. Call light and personal belongings within reach. Will continue to monitor.
[2018-08-05 04:46] VITALS: BP 144/70
[2018-08-05] MEDS: HYDROCODONE/APAP 10-325 MG TABLET PO PRN (05:33)
[2018-08-05] MEDS: PANTOPRAZOLE SODIUM 40 MG TABLET.DR PO SCH (06:30)
[2018-08-05] MEDS: BLOOD SUGAR DIAGNOSTIC 1 EACH STRIP VI SCH ×4 (06:37→20:55)
[2018-08-05 08:00] VITALS: BP 134/70
[2018-08-05] MEDS: AMLODIPINE 10 MG TABLET PO SCH (09:10)
[2018-08-05] MEDS: ASPIRIN 81 MG TAB.CHEW PO SCH (09:10)
[2018-08-05] MEDS: METFORMIN HCL 500 MG TABLET PO SCH ×2 (09:11→16:20)
[2018-08-05] MEDS: LOSARTAN POTASSIUM 50 MG TABLET PO SCH ×2 (09:11→16:20)
[2018-08-05] MEDS: GLIMEPIRIDE 2 MG TABLET PO SCH (09:11)
[2018-08-05] MEDS: MULTIVITAMINS,THERAPEUTIC TABLET PO SCH (09:12)
[2018-08-05] MEDS: LIDOCAINE 5% PATCH TD SCH (09:13)
[2018-08-05] MEDS: SERTRALINE HCL 50 MG TABLET PO SCH (09:15)
[2018-08-05] MEDS: ACETAMINOPHEN 325 MG TABLET PO PRN (09:15)
[2018-08-05] MEDS: CULTURELLE CAPSULE PO SCH ×2 (09:16→20:54)
[2018-08-05] MEDS: Z GUARD REMEDY PASTE 57 GM TUBE TOP SCH ×2 (09:17→21:00)
--- NOTE | 2018-08-05 09:53 | NUR ---
Received nursing report from evening or night nurse supervisor nurse. Pt. in air mattress bed for skin management. Pt A/OX1-2, responds to verbal and tactile stimuli. No SOB or acute distress noted. Administered all due medications as ordered and tolerated well. On 1:1 sitter for safety. Fall precautions in place. Assisted pt. with morning ADL's. Skin care rendered. PIV on LFA patent and intact. Lt. hip surgical incision clean, dry and intact with henry, no s/sx of infection. Lap michael incision C/D/I, no drain. F/C with yellow and clear urine output, patent and intact. Bed in locked and lowest position with side rails up x2, alarm on. Call light within reach. Will continue to monitor.
[2018-08-05] MEDS: INSULIN REGULAR, HUMAN 300 UNIT/3 ML VIAL SQ PRN ×2 (11:14→16:21)
--- NOTE | 2018-08-05 15:09 | NUR ---
INTERDISCIPLINARY TEAM CONFERENCE
[2018-08-05 16:42] VITALS: BP 135/61
[2018-08-05] MEDS: RIVAROXABAN 10 MG TABLET PO SCH (17:13)
--- NOTE | 2018-08-05 18:22 | NUR ---
End of shift: All due medications administered as ordered and tolerated well. No new skin condition noted. F/C patent and intact with yellow/clear urine output. Family at pt. bedside for support. Kept pt. clean and dry. Call light and all frequently used items within pt. reach. Will endorse to oncoming shift accordingly.
--- NOTE | 2018-08-05 19:45 | NUR ---
Patient received in bed. AAO x2, Confused about the time. Able to make needs known. No sign of acute distress or SOB was noted. On room air. No Complain of pain at this time. IV in left FA, G 22, no sign of inflammation. Pitts catheter in place, draining well with yellow urine. No isolation anymore. Safety measures maintained. Fall prevention observed. Bed in low position, brake and alarm on, side rails up x2 for safety. Call light and personal belongings within reach. Will continue to monitor.
[2018-08-05 19:49] VITALS: BP 134/64
[2018-08-05] MEDS: DOCUSATE SODIUM 100 MG CAPSULE PO SCH (20:54)
[2018-08-05] MEDS: LORAZEPAM 1 MG TABLET PO SCH (20:54)
[2018-08-05] MEDS: SIMVASTATIN 10 MG TABLET PO SCH (20:55)
[2018-08-06 04:37] VITALS: BP 131/70
[2018-08-06] MEDS: PANTOPRAZOLE SODIUM 40 MG TABLET.DR PO SCH (06:10)
[2018-08-06] MEDS: BLOOD SUGAR DIAGNOSTIC 1 EACH STRIP VI SCH ×2 (06:41→11:24)
--- NOTE | 2018-08-06 06:44 | NUR ---
End of the shift note Patient was stable throughout the shift and had a good sleep last night. No sign of acute distress or SOB noted. No Complain of pain. Medications given as ordered and well tolerated. Keep him clean and dry. Pitts catheter in place, draining well mark urine. Accu checked at 2100 BS: 102, no coverage based on sliding scale. Accu check at 0630 BS: 105. IV in right and left hand G 22, no sign of inflammation. Safety measures maintained. Hourly rounds done. All needs anticipated promptly. Fall precaution maintained. Bed in low position, brake and alarm on, side rails up x2. Call light and personal belongings within reach. Continue to monitor and will endorse to the day shift nurse accordingly.
[2018-08-06 07:26] VITALS: BP 128/65
[2018-08-06] MEDS: MULTIVITAMINS,THERAPEUTIC TABLET PO SCH (08:38)
[2018-08-06] MEDS: GLIMEPIRIDE 2 MG TABLET PO SCH (08:38)
[2018-08-06] MEDS: METFORMIN HCL 500 MG TABLET PO SCH ×2 (08:39→17:10)
[2018-08-06] MEDS: LIDOCAINE 5% PATCH TD SCH (08:39)
[2018-08-06] MEDS: LOSARTAN POTASSIUM 50 MG TABLET PO SCH ×2 (08:39→17:12)
[2018-08-06] MEDS: ASPIRIN 81 MG TAB.CHEW PO SCH (08:39)
[2018-08-06] MEDS: AMLODIPINE 10 MG TABLET PO SCH (08:39)
[2018-08-06] MEDS: CULTURELLE CAPSULE PO SCH ×2 (08:40→20:35)
[2018-08-06] MEDS: SERTRALINE HCL 50 MG TABLET PO SCH (08:40)
[2018-08-06] MEDS: Z GUARD REMEDY PASTE 57 GM TUBE TOP SCH ×2 (08:42→20:35)
[2018-08-06] MEDS: INSULIN REGULAR, HUMAN 300 UNIT/3 ML VIAL SQ PRN ×2 (08:46→11:25)
--- NOTE | 2018-08-06 09:09 | NUR ---
Received nursing report from shift production supervisor nurse. Pt. remains on air mattress bed for skin management. Pt A/OX2, responds to verbal and tactile stimuli. No SOB or acute distress noted. Administered all due medications as ordered and tolerated well. On 1:1 sitter for safety. Fall precautions in place. Assisted pt. with morning ADL's. Skin care rendered. PIV on LFA patent and intact. Lt. hip surgical incision clean, dry and intact with henry. Will coordinated with piano case maker appointment with Dr. Summers (Ortho) for f/u appointment. F/C with yellow and clear urine output, patent and intact. Bed in locked and lowest position with side rails up x2, alarm on. Call light within reach. Will continue to monitor.
--- NOTE | 2018-08-06 11:31 | NUR ---
Obtained lt. hip xray order from Dr. Springer for pt. upcoming appointment with Dr. Summers on 08/17/18. agreed with order for LT. hip xray 2 views on 08/16/18. Orders noted and carried out. Pt. and r/p made aware.
--- NOTE | 2018-08-06 13:03 | NUR ---
Obtained order from Dr. Carrero to change diet from cardiac to regular. DNP amenable with order to change diet to regular and d/c accu check and SSI order. Orders noted and carried out accordingly. Pt. made aware.
[2018-08-06] MEDS: RIVAROXABAN 10 MG TABLET PO SCH (17:10)
[2018-08-06] MEDS: HYDROCODONE/APAP 10-325 MG TABLET PO PRN (17:13)
--- NOTE | 2018-08-06 18:08 | NUR ---
End of shift: All due medications administered as ordered and tolerated well. No new skin condition noted. Encourage pt. PO intake. F/C patent and intact with yellow/clear urine output. Kept pt. clean and dry. Call light and all frequently used items within pt. reach. Will endorse to oncoming shift accordingly.
--- NOTE | 2018-08-06 19:45 | NUR ---
Patient received in bed. AAO x3. Able to make needs known. No sign of acute distress or SOB was noted. On room air. No Complain of pain at this time. IV in left FA, G 22, no sign of inflammation. Pitts catheter in place, draining well with yellow urine. Safety measures maintained. Fall prevention observed. Bed in low position, brake and alarm on, side rails up x2 for safety. Call light and personal belongings within reach. Will continue to monitor.
[2018-08-06 20:00] VITALS: BP 135/68
[2018-08-06] MEDS: LORAZEPAM 1 MG TABLET PO SCH (20:35)
[2018-08-06] MEDS: SIMVASTATIN 10 MG TABLET PO SCH (20:35)
[2018-08-06] MEDS: DOCUSATE SODIUM 100 MG CAPSULE PO SCH (20:35)
--- NOTE | 2018-08-07 05:49 | NUR ---
End of the shift note Patient was stable throughout the shift and had a good sleep last night. No sign of acute distress or SOB noted. No Complain of pain. Medications given as ordered and well tolerated. Keep him clean and dry. Pitts catheter in place, draining well mark urine. IV in the left hand G 22, no sign of inflammation. Safety measures maintained. Hourly rounds done. All needs anticipated promptly. Fall precaution maintained. Bed in low position, brake and alarm on, side rails up x2. Call light and personal belongings within reach. Continue to monitor and will endorse to the day shift nurse accordingly.
[2018-08-07] MEDS: PANTOPRAZOLE SODIUM 40 MG TABLET.DR PO SCH (06:06)
[2018-08-07 07:30] LABS: BASOPHILS % (AUTO) 0.4 % (0.0-2.0); EOSINOPHILS % (AUTO) 0.3 % (0.0-7.0); HEMATOCRIT 31.6 % (36.7-47.1); HEMOGLOBIN 10.9 g/dL (12.5-16.3); LYMPHOCYTES # (AUTO) 1.6 K/uL (20.0-40.0); LYMPHOCYTES % (AUTO) 14.8 % (20.5-51.5); MEAN CORPUSCULAR HEMOGLOBIN 31.8 uug (23.8-33.4); MEAN CORPUSCULAR HGB CONC 34 g/dL (32.5-36.3); MEAN CORPUSCULAR VOLUME 92.5 fL (73.0-96.2); MONOCYTES # (AUTO) 0.8 K/uL (2.0-10.0); MONOCYTES % (AUTO) 7.4 % (0.0-11.0); NEUTROPHILS # (AUTO) 8.1 K/uL (1.8-8.9); NEUTROPHILS % (AUTO) 77.1 % (38.5-71.5); PLATELET COUNT (AUTO) 494 K/uL (152-348); RED BLOOD CELL COUNT(AUTO) 3.41 MIL/uL (4.06-5.63); WHITE BLOOD COUNT (AUTO) 10.5 K/uL (3.6-10.2)
[2018-08-07 07:53] LABS: ALANINE AMINOTRANSFERASE 43 U/L (16-63); ALKALINE PHOSPHATASE 283 U/L (50-136); ASPARTATE AMINOTRANSFERASE 13 U/L (15-37); BILIRUBIN,TOTAL 0.3 mg/dL (0.2-1.0); CARBON DIOXIDE 26 mmol/L (21-32); CHLORIDE 97 mmol/L (98-107); CREATININE 0.7 mg/dL (0.6-1.3); GLUCOSE 103 mg/dL (74-106); MAGNESIUM 1.4 mg/dL (1.8-2.4); PHOSPHOROUS 2.9 mg/dL (2.5-4.9); POTASSIUM 3.8 mmol/L (3.5-5.1); TOTAL PROTEIN, SERUM 6.7 g/dL (6.4-8.2); UREA NITROGEN, BLOOD 20 mg/dL (7-18)
[2018-08-07] MEDS: ASPIRIN 81 MG TAB.CHEW PO SCH (08:33)
[2018-08-07] MEDS: MULTIVITAMINS,THERAPEUTIC TABLET PO SCH (08:33)
[2018-08-07] MEDS: METFORMIN HCL 500 MG TABLET PO SCH ×2 (08:33→17:03)
[2018-08-07] MEDS: LOSARTAN POTASSIUM 50 MG TABLET PO SCH ×2 (08:33→17:03)
[2018-08-07] MEDS: LIDOCAINE 5% PATCH TD SCH (08:33)
[2018-08-07] MEDS: GLIMEPIRIDE 2 MG TABLET PO SCH (08:33)
[2018-08-07] MEDS: AMLODIPINE 10 MG TABLET PO SCH (08:33)
[2018-08-07] MEDS: MIRALAX 17 GM POWD.PACK PO PRN (08:33)
[2018-08-07] MEDS: SERTRALINE HCL 50 MG TABLET PO SCH (08:33)
[2018-08-07] MEDS: CULTURELLE CAPSULE PO SCH ×2 (08:33→20:18)
[2018-08-07 08:47] VITALS: BP 135/69
[2018-08-07] MEDS: Z GUARD REMEDY PASTE 57 GM TUBE TOP SCH ×2 (09:02→20:19)
--- NOTE | 2018-08-07 09:54 | NUR ---
Received nursing report from hotel night auditor nurse. Pt. remains on air mattress bed for skin management. Pt A/OX2, responds to verbal and tactile stimuli. No SOB or acute distress noted. Administered all due medications as ordered and tolerated well. On 1:1 sitter for safety. Fall precautions in place. Assisted pt. with morning ADL's. Skin care rendered. PIV on LFA patent and intact. Lt. hip surgical incision clean, dry and intact with henry. F/C with yellow and clear urine output, patent and intact. Bed in locked and lowest position with side rails up x2, alarm on. Call light within reach. Will continue to monitor.
[2018-08-07] MEDS: MAGNESIUM SULFATE/D5W 100 ML IV SCH ×4 (12:58→16:11)
--- NOTE | 2018-08-07 13:19 | NUR ---
Dr. Tim came and evaluated pt. Received verbal order from MD to d/c lynch catheter and monitor for urinary retention. MD with order to d/c LT. hip 3 surgical incision henry (16). MD also aware of lab results today. Mg 1.4 level replaced with mg sulfate 4g IV. All orders noted and carried out accordingly. Pt. and family at bedside made aware and amenable.
--- NOTE | 2018-08-07 13:24 | NUR ---
D/C lt hip incision henry as ordered. Remove 16 henry and applied steri strips (11). Pitts d/c @ 1320, will monitor for urinary retention. Pt. tolerated both procedure well
--- NOTE | 2018-08-07 14:24 | NUR ---
WOUND CARE CONSULT: PT SEEN FOR LOWER BACK HEALING BLISTER, PRESENT ON ADMISSION. SEVERAL HEALED AREAS NOTED. RECOMMENDATIONS MADE FOR SKIN PROTECTION. DISCUSSED WITH NURSING STAFF. PT ABLE TO ASSIST WITH TURNING AND REPOSITIONING IN BED. WILL SEE PRN. RUBIO IN AGREEMENT WITH PLAN OF CARE.
[2018-08-07 16:32] VITALS: BP 128/70
[2018-08-07] MEDS: RIVAROXABAN 10 MG TABLET PO SCH (17:03)
--- NOTE | 2018-08-07 18:14 | NUR ---
End of shift: All due medications administered as ordered and tolerated well. No new skin condition noted. Encourage pt. PO intake, pt. intake improved with regular diet. Kept pt. clean and dry. S/P lynch removal on monitoring for urinary retention. Call light and all frequently used items within pt. reach. Will endorse to oncoming shift accordingly.
--- NOTE | 2018-08-07 19:53 | NUR ---
SBAR received from day shift nurse. Patient alert and oriented x 2-3. Sitter at bedside. C/O of pain upon assessment. Will administer pain medication. Admission assessment competed. Pressure mattress present. Pitts draining yellow urine. Call light and frequently used items within reach. Will continue to monitor.
[2018-08-07 19:57] VITALS: BP 135/65
[2018-08-07] MEDS: SIMVASTATIN 10 MG TABLET PO SCH (20:18)
[2018-08-07] MEDS: LORAZEPAM 1 MG TABLET PO SCH (20:18)
[2018-08-07] MEDS: HYDROCODONE/APAP 10-325 MG TABLET PO PRN (20:18)
[2018-08-07] MEDS: DOCUSATE SODIUM 100 MG CAPSULE PO SCH (20:18)
[2018-08-07] MEDS: ACETAMINOPHEN 325 MG TABLET PO PRN (22:12)
[2018-08-08 04:00] VITALS: BP 130/72
[2018-08-08] MEDS: PANTOPRAZOLE SODIUM 40 MG TABLET.DR PO SCH (06:11)
--- NOTE | 2018-08-08 06:51 | NUR ---
No significant change overnight. All due medications administered as ordered and tolerated well. Encourage PO intake. Patient uses diaper post Pitts D/C. Call light and all frequently used items within reach. Will endorse to oncoming shift accordingly.
[2018-08-08 08:15] VITALS: BP 145/66
[2018-08-08] MEDS: ASPIRIN 81 MG TAB.CHEW PO SCH (09:59)
[2018-08-08] MEDS: GLIMEPIRIDE 2 MG TABLET PO SCH (09:59)
[2018-08-08] MEDS: MULTIVITAMINS,THERAPEUTIC TABLET PO SCH (09:59)
[2018-08-08] MEDS: METFORMIN HCL 500 MG TABLET PO SCH ×2 (10:00→17:22)
[2018-08-08] MEDS: CULTURELLE CAPSULE PO SCH ×2 (10:00→20:20)
[2018-08-08] MEDS: LOSARTAN POTASSIUM 50 MG TABLET PO SCH ×2 (10:00→17:24)
[2018-08-08] MEDS: LIDOCAINE 5% PATCH TD SCH (10:01)
[2018-08-08] MEDS: SERTRALINE HCL 50 MG TABLET PO SCH (10:01)
[2018-08-08] MEDS: AMLODIPINE 10 MG TABLET PO SCH (10:02)
[2018-08-08] MEDS: HYDROCODONE/APAP 10-325 MG TABLET PO PRN ×2 (10:20→19:54)
[2018-08-08] MEDS: Z GUARD REMEDY PASTE 57 GM TUBE TOP SCH ×2 (10:22→20:21)
[2018-08-08 15:40] VITALS: BP 125/61
[2018-08-08] MEDS: RIVAROXABAN 10 MG TABLET PO SCH (17:27)
--- NOTE | 2018-08-08 18:21 | NUR ---
SBAR report received this morning. Pt assessed NAD. Pt reports pain relieved following administration of PRN pain medication provided as ordered, prior to therapy. Pt cooperative with all therapies as offered. Pt compliant with routinely scheduled medication, taken one pill at a time. VSS. Various family members visited Pt today. 1:1 sitter remains at bedside for safety. Bed in locked and lowest position with side rails up x2, on air mattress. All safety and comfort needs met promptly. Pt seen by MD, no new orders received. Left hip incision site healing well approximated, since staple removal yesterday. Left forearm IV flushed, patent, intact, and dressing changed. Pt able to make needs known. Personal belongings collected from bedside of $21 dollars in kishore and several credit cards. Placed in Pt valuables Record envelope with second RN as witness, awaiting Software Product Manager to deposit in hospital safe. Call light within reach, will continue to monitor and endorse to oncoming slot shift manager nurse.
--- NOTE | 2018-08-08 19:15 | NUR ---
Awake during initial rounds. Presented complaint of tolerable pain on both thighs at this time. Will continue to monitor. Remain on 2:1 sitter for safety. Safety measure and fall precaution maintained. Continue care as planned.
[2018-08-08 19:53] VITALS: BP 124/62
[2018-08-08] MEDS: DOCUSATE SODIUM 100 MG CAPSULE PO SCH (20:21)
[2018-08-08] MEDS: SIMVASTATIN 10 MG TABLET PO SCH (20:21)
[2018-08-08] MEDS: LORAZEPAM 1 MG TABLET PO SCH (20:21)
[2018-08-09 06:49] VITALS: BP 136/78
[2018-08-09] MEDS: PANTOPRAZOLE SODIUM 40 MG TABLET.DR PO SCH (06:56)
[2018-08-09 07:43] VITALS: BP 141/57
[2018-08-09] MEDS: METFORMIN HCL 500 MG TABLET PO SCH ×2 (09:21→17:35)
[2018-08-09] MEDS: ASPIRIN 81 MG TAB.CHEW PO SCH (09:21)
[2018-08-09] MEDS: GLIMEPIRIDE 2 MG TABLET PO SCH (09:22)
[2018-08-09] MEDS: CULTURELLE CAPSULE PO SCH ×2 (09:22→20:10)
[2018-08-09] MEDS: MULTIVITAMINS,THERAPEUTIC TABLET PO SCH (09:22)
[2018-08-09] MEDS: SERTRALINE HCL 50 MG TABLET PO SCH (09:22)
[2018-08-09] MEDS: LIDOCAINE 5% PATCH TD SCH (09:22)
[2018-08-09] MEDS: AMLODIPINE 10 MG TABLET PO SCH (09:23)
[2018-08-09] MEDS: LOSARTAN POTASSIUM 50 MG TABLET PO SCH ×2 (09:23→17:36)
[2018-08-09] MEDS: Z GUARD REMEDY PASTE 57 GM TUBE TOP SCH ×2 (10:34→20:13)
[2018-08-09 15:54] VITALS: BP 124/57
[2018-08-09] MEDS: RIVAROXABAN 10 MG TABLET PO SCH (17:40)
[2018-08-09] MEDS: SIMVASTATIN 10 MG TABLET PO SCH (20:09)
[2018-08-09] MEDS: DOCUSATE SODIUM 100 MG CAPSULE PO SCH (20:10)
[2018-08-09] MEDS: LORAZEPAM 1 MG TABLET PO SCH (20:10)
[2018-08-09 20:14] VITALS: BP 128/65
--- NOTE | 2018-08-09 21:14 | NUR ---
Received pt resting in bed. AAO x3. Family at bedside. No acute distress noted. No c/o pain or discomfort. All due meds given as ordered. On 2:1 sitter for safety. Safety measures maintained. Call light and personal belongings within reach. Will continue to monitor.
[2018-08-10] MEDS: HYDROCODONE/APAP 10-325 MG TABLET PO PRN ×2 (00:16→19:44)
[2018-08-10] MEDS: PANTOPRAZOLE SODIUM 40 MG TABLET.DR PO SCH (06:27)
[2018-08-10 07:30] VITALS: BP 134/70
[2018-08-10] MEDS: GLIMEPIRIDE 2 MG TABLET PO SCH (09:29)
[2018-08-10] MEDS: LOSARTAN POTASSIUM 50 MG TABLET PO SCH ×2 (09:29→17:18)
[2018-08-10] MEDS: ASPIRIN 81 MG TAB.CHEW PO SCH (09:29)
[2018-08-10] MEDS: METFORMIN HCL 500 MG TABLET PO SCH ×2 (09:29→17:17)
[2018-08-10] MEDS: LIDOCAINE 5% PATCH TD SCH (09:29)
[2018-08-10] MEDS: MULTIVITAMINS,THERAPEUTIC TABLET PO SCH (09:30)
[2018-08-10] MEDS: Z GUARD REMEDY PASTE 57 GM TUBE TOP SCH ×2 (09:30→20:35)
[2018-08-10] MEDS: AMLODIPINE 10 MG TABLET PO SCH (09:30)
[2018-08-10] MEDS: SERTRALINE HCL 50 MG TABLET PO SCH (09:30)
[2018-08-10] MEDS: CULTURELLE CAPSULE PO SCH ×2 (09:30→20:35)
--- NOTE | 2018-08-10 09:30 | NUR ---
With family at bedside. Patient alert x2-3. Encouraged to increase oral intake. Tolerated medications well. Denies any pain at the moment. No SOB, chest pains or dizziness noted. Not in any form of distress. Explained risks and explained need for sitter at bedside and need to change room assignment.
--- NOTE | 2018-08-10 13:41 | NUR ---
INTERDISCIPLINARY TEAM CONFERENCE
[2018-08-10 15:46] VITALS: BP 119/61
[2018-08-10] MEDS: RIVAROXABAN 10 MG TABLET PO SCH (17:18)
[2018-08-10 19:58] VITALS: BP 127/58
[2018-08-10] MEDS: DOCUSATE SODIUM 100 MG CAPSULE PO SCH (20:35)
[2018-08-10] MEDS: SIMVASTATIN 10 MG TABLET PO SCH (20:35)
[2018-08-10] MEDS ORDERED: BENAZEPRIL HCL 20 MG TABLET PO SCH (21:00)
[2018-08-10] MEDS: diphenhydrAMINE 50 MG CAPSULE PO PRN (21:03)
--- NOTE | 2018-08-10 23:58 | NUR ---
Received pt in bed, AAO x 2 watching television. No acute distress noted. Verbally responsive and able to communicate basic needs. Primarily Farsi speaking but able to communicate some [place]. C/O pain bilateral lower legs, noted to be rubbing thighs, per patient "tired from therapy". PRN [place] given as ordered by MD, tolerated well. All due medications given as ordered, tolerated well. All safety measures and fall precautions maintained. Call light and all personal belongings within reach. Will continue to monitor.
[2018-08-11 04:40] VITALS: BP 135/66
[2018-08-11] MEDS: PANTOPRAZOLE SODIUM 40 MG TABLET.DR PO SCH (06:12)
[2018-08-11] MEDS: GLIMEPIRIDE 2 MG TABLET PO SCH (08:59)
[2018-08-11] MEDS: MULTIVITAMINS,THERAPEUTIC TABLET PO SCH (08:59)
[2018-08-11 09:00] VITALS: BP 143/66
[2018-08-11] MEDS: LOSARTAN POTASSIUM 50 MG TABLET PO SCH ×2 (09:00→17:14)
--- NOTE | 2018-08-11 09:00 | NUR ---
Received patient, awake, alert x1-2. Denies any pain. Not in any form of distress. No dizziness, abdominal pain or chest pains noted. Air mattress in place. Refused breakfast but took ensure. Said he was still full from sandwich in early AM. Encouraged to eat more.
[2018-08-11] MEDS: ASPIRIN 81 MG TAB.CHEW PO SCH (09:01)
[2018-08-11] MEDS: CULTURELLE CAPSULE PO SCH ×2 (09:01→20:28)
[2018-08-11] MEDS: SERTRALINE HCL 50 MG TABLET PO SCH (09:02)
[2018-08-11] MEDS: LIDOCAINE 5% PATCH TD SCH (09:05)
[2018-08-11] MEDS: AMLODIPINE 10 MG TABLET PO SCH (09:10)
[2018-08-11] MEDS: METFORMIN HCL 500 MG TABLET PO SCH ×2 (09:11→17:15)
[2018-08-11] MEDS: ACETAMINOPHEN 325 MG TABLET PO PRN (09:12)
[2018-08-11] MEDS: Z GUARD REMEDY PASTE 57 GM TUBE TOP SCH ×2 (09:12→20:48)
[2018-08-11 09:51] LABS: BASOPHILS # (AUTO) 0.1 K/uL (0.0-8.0); BASOPHILS % (AUTO) 0.9 % (0.0-2.0); EOSINOPHILS % (AUTO) 0.4 % (0.0-7.0); HEMATOCRIT 33.1 % (36.7-47.1); HEMOGLOBIN 11.3 g/dL (12.5-16.3); LYMPHOCYTES # (AUTO) 1.4 K/uL (20.0-40.0); LYMPHOCYTES % (AUTO) 16.4 % (20.5-51.5); MEAN CORPUSCULAR HEMOGLOBIN 31.6 uug (23.8-33.4); MEAN CORPUSCULAR HGB CONC 34 g/dL (32.5-36.3); MEAN CORPUSCULAR VOLUME 92.6 fL (73.0-96.2); MONOCYTES # (AUTO) 0.7 K/uL (2.0-10.0); MONOCYTES % (AUTO) 7.7 % (0.0-11.0); NEUTROPHILS # (AUTO) 6.3 K/uL (1.8-8.9); NEUTROPHILS % (AUTO) 74.6 % (38.5-71.5); PLATELET COUNT (AUTO) 388 K/uL (152-348); RED BLOOD CELL COUNT(AUTO) 3.57 MIL/uL (4.06-5.63); WHITE BLOOD COUNT (AUTO) 8.5 K/uL (3.6-10.2)
[2018-08-11 10:01] LABS: CARBON DIOXIDE 29 mmol/L (21-32); CHLORIDE 97 mmol/L (98-107); CREATININE 0.8 mg/dL (0.6-1.3); GLUCOSE 141 mg/dL (74-106); POTASSIUM 4.5 mmol/L (3.5-5.1); UREA NITROGEN, BLOOD 22 mg/dL (7-18)
[2018-08-11 10:07] LABS: ALANINE AMINOTRANSFERASE 30 U/L (16-63); ALKALINE PHOSPHATASE 263 U/L (50-136); ASPARTATE AMINOTRANSFERASE 15 U/L (15-37); BILIRUBIN,TOTAL 0.3 mg/dL (0.2-1.0); MAGNESIUM 1.7 mg/dL (1.8-2.4); TOTAL PROTEIN, SERUM 6.7 g/dL (6.4-8.2)
[2018-08-11 16:00] VITALS: BP 121/68
[2018-08-11] MEDS: RIVAROXABAN 10 MG TABLET PO SCH (17:16)
--- NOTE | 2018-08-11 18:00 | NUR ---
Seen on rounding, with family at bedside. Denies any pain. Rosy-care done, changed frequently. Tolerated medications well.
[2018-08-11 19:25] VITALS: BP 98/63
--- NOTE | 2018-08-11 19:30 | NUR ---
SBAR received from day shift nurse. Patient alert and oriented x 2-3. C/O of pain upon assessment. Patient noted not be confused upon assessment. Will administer pain medication. Pressure mattress present. Call light and frequently used items within reach. Will continue to monitor.
[2018-08-11] MEDS: diphenhydrAMINE 50 MG CAPSULE PO PRN (20:28)
[2018-08-11] MEDS: DOCUSATE SODIUM 100 MG CAPSULE PO SCH (20:28)
[2018-08-11] MEDS: SIMVASTATIN 10 MG TABLET PO SCH (20:28)
[2018-08-11] MEDS: HYDROCODONE/APAP 10-325 MG TABLET PO PRN (20:29)
--- NOTE | 2018-08-12 00:49 | NUR ---
Patient confused staring into the ceiling. Unsure of what is going on. Believes it to be the middle of the day. Was awoken by neighboring patients phone call. No pain of SOB at this time. TV tuned on for comfort as patient refuses to fall back asleep. Will continue to monitor.
[2018-08-12 05:29] VITALS: BP 137/78
[2018-08-12] MEDS: PANTOPRAZOLE SODIUM 40 MG TABLET.DR PO SCH (06:05)
--- NOTE | 2018-08-12 06:45 | NUR ---
No significant change overnight. Slept on and off during shift. No C/O pain or SOB at this time. All due medications administered as ordered and tolerated well. Encourage PO intake. Call light and all frequently used items within reach. Will endorse to oncoming shift accordingly.
[2018-08-12] MEDS: LOSARTAN POTASSIUM 50 MG TABLET PO SCH ×2 (08:36→17:15)
[2018-08-12] MEDS: MULTIVITAMINS,THERAPEUTIC TABLET PO SCH (08:36)
[2018-08-12] MEDS: GLIMEPIRIDE 2 MG TABLET PO SCH (08:36)
[2018-08-12] MEDS: METFORMIN HCL 500 MG TABLET PO SCH ×2 (08:36→17:13)
[2018-08-12] MEDS: ASPIRIN 81 MG TAB.CHEW PO SCH (08:36)
[2018-08-12] MEDS: CULTURELLE CAPSULE PO SCH ×2 (08:37→20:10)
[2018-08-12] MEDS: AMLODIPINE 10 MG TABLET PO SCH (08:37)
[2018-08-12] MEDS: LIDOCAINE 5% PATCH TD SCH (08:38)
[2018-08-12] MEDS: SERTRALINE HCL 50 MG TABLET PO SCH (08:38)
[2018-08-12] MEDS: Z GUARD REMEDY PASTE 57 GM TUBE TOP SCH ×2 (08:38→20:12)
--- NOTE | 2018-08-12 08:50 | NUR ---
Patient noted sitting up in bed, denies pain at this time, no signs of distress noted, call light in reach, bed locked and in lowest position, took all AM medications, Lidocaine patch applied to lower back as scheduled, all needs met at this time
[2018-08-12 09:00] VITALS: BP 146/63
[2018-08-12] MEDS: RIVAROXABAN 10 MG TABLET PO SCH (17:14)
[2018-08-12 18:15] VITALS: BP 126/73
[2018-08-12 19:15] VITALS: BP 121/65
--- NOTE | 2018-08-12 19:47 | NUR ---
Report received from day shift nurse. Patient alert and oriented x 2-3. C/O of pain upon assessment. Will administer pain medication. Pressure mattress present. Patient found to be clean and dry. Call light and frequently used items within reach. Will continue to monitor.
[2018-08-12] MEDS: SIMVASTATIN 10 MG TABLET PO SCH (20:10)
[2018-08-12] MEDS: HYDROCODONE/APAP 10-325 MG TABLET PO PRN (20:10)
[2018-08-12] MEDS: DOCUSATE SODIUM 100 MG CAPSULE PO SCH (20:10)
[2018-08-12] MEDS: diphenhydrAMINE 50 MG CAPSULE PO PRN (20:10)
[2018-08-13 05:03] VITALS: BP 136/66
[2018-08-13] MEDS: PANTOPRAZOLE SODIUM 40 MG TABLET.DR PO SCH (06:08)
--- NOTE | 2018-08-13 06:44 | NUR ---
No significant change overnight. All due medications administered as ordered and tolerated well. Encouraged PO intake. No C/O of pain or SOB during shift. Patient kept clean and dry on shift. Call light and all frequently used items within reach. Will endorse to oncoming shift accordingly.
[2018-08-13 07:30] VITALS: BP 145/73
[2018-08-13] MEDS: SERTRALINE HCL 50 MG TABLET PO SCH (08:08)
[2018-08-13] MEDS: GLIMEPIRIDE 2 MG TABLET PO SCH (08:09)
[2018-08-13] MEDS: CULTURELLE CAPSULE PO SCH ×2 (08:09→20:18)
[2018-08-13] MEDS: LOSARTAN POTASSIUM 50 MG TABLET PO SCH ×2 (08:09→16:20)
[2018-08-13] MEDS: AMLODIPINE 10 MG TABLET PO SCH (08:10)
[2018-08-13] MEDS: ASPIRIN 81 MG TAB.CHEW PO SCH (08:12)
[2018-08-13] MEDS: LIDOCAINE 5% PATCH TD SCH (08:14)
[2018-08-13] MEDS: Z GUARD REMEDY PASTE 57 GM TUBE TOP SCH ×2 (08:15→20:18)
[2018-08-13] MEDS: MULTIVITAMINS,THERAPEUTIC TABLET PO SCH (08:23)
[2018-08-13] MEDS: METFORMIN HCL 500 MG TABLET PO SCH ×2 (08:23→16:20)
[2018-08-13] MEDS: ACETAMINOPHEN 325 MG TABLET PO PRN (10:27)
--- NOTE | 2018-08-13 11:22 | NUR ---
Received patient in bed in stable condition. Continue therapy for ambulation and ADL ability. Continue pain management prior to therapy and if needed. not in distress. will continue monitor
--- NOTE | 2018-08-13 11:33 | NUR ---
WOUND CARE CONSULT: PT PRESENTS WITH SLIGHT RASH TO GROIN FOLDS. PT PREVIOUSLY SEEN FOR HEALING BLISTER TO LOWER BACK WHICH IS NOW RESOLVED. PT INCONTINENT OF URINE AT TIMES. RECOMMENDATIONS MADE FOR SKIN PROTECTION AND SKIN CARE. DISCUSSED WITH NURSING STAFF. WILL SEE PRN. RUBIO IN AGREEMENT WITH PLAN OF CARE. PT ON FIRST STEP [facility] AIRLOSS MATTRESS.
--- NOTE | 2018-08-13 11:37 | NUR ---
Patient seen and examined by wound nurse with ordered CLEANSE WITH SOAP AND WATER, RINSE AND DRY WELL, APPLY LOTRIMIN CREAM, EVERY SHIFT, MAY FOLLOW WITH Z GUARD for groin redness. will continue monitor
[2018-08-13 16:00] VITALS: BP 129/64
[2018-08-13] MEDS: CLOTRIMAZOLE 1% CREAM 30 GM TUBE TOP SCH (16:20)
[2018-08-13] MEDS: RIVAROXABAN 10 MG TABLET PO SCH (18:35)
--- NOTE | 2018-08-13 19:25 | NUR ---
SBAR received from day shift nurse. Patient alert and oriented x 2-3. No C/O of pain upon assessment. Pressure mattress present. Patient found to be clean and dry. Call light and frequently used items within reach. Will continue to monitor.
[2018-08-13 19:47] VITALS: BP 126/64
[2018-08-13] MEDS: HYDROCODONE/APAP 10-325 MG TABLET PO PRN (20:18)
[2018-08-13] MEDS: SIMVASTATIN 10 MG TABLET PO SCH (20:18)
[2018-08-13] MEDS: DOCUSATE SODIUM 100 MG CAPSULE PO SCH (20:18)
[2018-08-13] MEDS: diphenhydrAMINE 50 MG CAPSULE PO PRN (20:18)
[2018-08-14 05:10] VITALS: BP 129/66
[2018-08-14] MEDS: PANTOPRAZOLE SODIUM 40 MG TABLET.DR PO SCH (06:13)
--- NOTE | 2018-08-14 06:46 | NUR ---
All due medications administered as ordered and tolerated well. Encouraged PO intake. No C/O of SOB or distress during shift. Patient kept clean and dry on shift. Call light and all frequently used items within reach. Will endorse to oncoming shift accordingly.
--- NOTE | 2018-08-14 08:01 | NUR ---
Patient noted resting in bed with eyes closed, arouses easily, denies pain at this time, no signs of distress noted, call light in reach, bed locked and in lowest position, took all AM medications, lidocaine patch placed on patient lower back, all needs met at this time
[2018-08-14] MEDS: MULTIVITAMINS,THERAPEUTIC TABLET PO SCH (08:39)
[2018-08-14] MEDS: ASPIRIN 81 MG TAB.CHEW PO SCH (08:39)
[2018-08-14] MEDS: GLIMEPIRIDE 2 MG TABLET PO SCH (08:40)
[2018-08-14] MEDS: METFORMIN HCL 500 MG TABLET PO SCH ×2 (08:41→17:12)
[2018-08-14] MEDS: CULTURELLE CAPSULE PO SCH ×2 (08:41→20:18)
[2018-08-14] MEDS: SERTRALINE HCL 50 MG TABLET PO SCH (08:42)
[2018-08-14] MEDS: LIDOCAINE 5% PATCH TD SCH (08:42)
[2018-08-14] MEDS: AMLODIPINE 10 MG TABLET PO SCH (08:42)
[2018-08-14] MEDS: LOSARTAN POTASSIUM 50 MG TABLET PO SCH ×2 (08:43→17:12)
[2018-08-14] MEDS: Z GUARD REMEDY PASTE 57 GM TUBE TOP SCH ×2 (08:43→20:20)
[2018-08-14] MEDS: CLOTRIMAZOLE 1% CREAM 30 GM TUBE TOP SCH ×2 (08:43→17:13)
[2018-08-14 08:49] VITALS: BP 137/67
[2018-08-14] MEDS: HYDROCODONE/APAP 10-325 MG TABLET PO PRN (15:26)
[2018-08-14] MEDS: RIVAROXABAN 10 MG TABLET PO SCH (17:15)
--- NOTE | 2018-08-14 18:18 | NUR ---
PRN [place] given for right leg pain this shift, no changes in mental status, took all medications this shift
[2018-08-14 20:00] VITALS: BP 119/63
[2018-08-14] MEDS: SIMVASTATIN 10 MG TABLET PO SCH (20:18)
[2018-08-14] MEDS: DOCUSATE SODIUM 100 MG CAPSULE PO SCH (20:18)
[2018-08-14] MEDS: diphenhydrAMINE 50 MG CAPSULE PO PRN (20:19)
[2018-08-15 04:00] VITALS: BP 126/72
[2018-08-15] MEDS: PANTOPRAZOLE SODIUM 40 MG TABLET.DR PO SCH (06:01)
--- NOTE | 2018-08-15 07:35 | NUR ---
Patient noted resting in bed with eyes closed, no facial cues of pain noted, no signs of distress noted, call light in reach, bed locked and in lowest position, all needs met at this time
[2018-08-15] MEDS: CULTURELLE CAPSULE PO SCH ×2 (08:33→20:09)
[2018-08-15] MEDS: SERTRALINE HCL 50 MG TABLET PO SCH (08:33)
[2018-08-15] MEDS: ASPIRIN 81 MG TAB.CHEW PO SCH (08:33)
[2018-08-15] MEDS: HYDROCODONE/APAP 10-325 MG TABLET PO PRN (08:33)
[2018-08-15] MEDS: LIDOCAINE 5% PATCH TD SCH (08:33)
[2018-08-15] MEDS: MULTIVITAMINS,THERAPEUTIC TABLET PO SCH (08:33)
[2018-08-15] MEDS: GLIMEPIRIDE 2 MG TABLET PO SCH (08:33)
[2018-08-15] MEDS: AMLODIPINE 10 MG TABLET PO SCH (08:34)
[2018-08-15] MEDS: LOSARTAN POTASSIUM 50 MG TABLET PO SCH ×2 (08:34→17:25)
[2018-08-15] MEDS: CLOTRIMAZOLE 1% CREAM 30 GM TUBE TOP SCH ×2 (08:35→17:26)
[2018-08-15] MEDS: METFORMIN HCL 500 MG TABLET PO SCH ×2 (08:35→17:25)
[2018-08-15] MEDS: Z GUARD REMEDY PASTE 57 GM TUBE TOP SCH ×2 (08:35→20:13)
[2018-08-15] MEDS: RIVAROXABAN 10 MG TABLET PO SCH (17:28)
[2018-08-15 19:42] VITALS: BP 139/74
[2018-08-15 20:00] VITALS: BP 139/74
[2018-08-15] MEDS: SIMVASTATIN 10 MG TABLET PO SCH (20:09)
[2018-08-15] MEDS: DOCUSATE SODIUM 100 MG CAPSULE PO SCH (20:09)
[2018-08-15] MEDS: diphenhydrAMINE 50 MG CAPSULE PO PRN (20:23)
[2018-08-16] MEDS: PANTOPRAZOLE SODIUM 40 MG TABLET.DR PO SCH (06:40)
[2018-08-16] MEDS: LIDOCAINE 5% PATCH TD SCH (08:25)
[2018-08-16] MEDS: ASPIRIN 81 MG TAB.CHEW PO SCH (08:26)
[2018-08-16] MEDS: SERTRALINE HCL 50 MG TABLET PO SCH (08:26)
[2018-08-16] MEDS: METFORMIN HCL 500 MG TABLET PO SCH ×2 (08:26→16:44)
[2018-08-16] MEDS: CULTURELLE CAPSULE PO SCH ×2 (08:26→21:27)
[2018-08-16] MEDS: GLIMEPIRIDE 2 MG TABLET PO SCH (08:27)
[2018-08-16] MEDS: LOSARTAN POTASSIUM 50 MG TABLET PO SCH ×2 (08:27→16:44)
[2018-08-16] MEDS: AMLODIPINE 10 MG TABLET PO SCH (08:27)
[2018-08-16] MEDS: CLOTRIMAZOLE 1% CREAM 30 GM TUBE TOP SCH ×2 (08:27→16:45)
[2018-08-16] MEDS: MULTIVITAMINS,THERAPEUTIC TABLET PO SCH (08:27)
--- NOTE | 2018-08-16 08:30 | NUR ---
Received patient, awake, alert x2. Not in any form of distress. Denies any pain. X-Ray for left hip done. Air mattress in place. Morning care done.
[2018-08-16] MEDS: Z GUARD REMEDY PASTE 57 GM TUBE TOP SCH ×2 (08:34→21:27)
[2018-08-16 09:00] VITALS: BP 120/68
[2018-08-16] MEDS: ACETAMINOPHEN 325 MG TABLET PO PRN ×2 (10:40→18:05)
--- NOTE | 2018-08-16 10:40 | NUR ---
PRN Tylenol given. Encouraged to participate with physical and occupational therapy. Patient eventually agreed and participated.
[2018-08-16 16:33] VITALS: BP 113/60
[2018-08-16 17:00] VITALS: BP 113/60
[2018-08-16] MEDS: RIVAROXABAN 10 MG TABLET PO SCH (17:18)
[2018-08-16] MEDS: MIRALAX 17 GM POWD.PACK PO PRN (18:45)
--- NOTE | 2018-08-16 18:49 | NUR ---
Patient claimed he was not able to fully empty his bladder and requested for a stool softener. PRN Miralax given.
--- NOTE | 2018-08-16 19:10 | NUR ---
Received patient awake, able to make needs known. Assisted to the BR with walker. Had 1 BM today moderate amount. Denies any pain/discomforts at this time. Safety measure and fall precaution maintained. Continue care as planned.
[2018-08-16 20:01] VITALS: BP 122/68
[2018-08-16] MEDS: SIMVASTATIN 10 MG TABLET PO SCH (21:27)
[2018-08-16] MEDS: DOCUSATE SODIUM 100 MG CAPSULE PO SCH (21:27)
[2018-08-17] MEDS: ACETAMINOPHEN 325 MG TABLET PO PRN (05:10)
[2018-08-17 05:11] VITALS: BP 137/76
--- NOTE | 2018-08-17 06:07 | NUR ---
Shift End Report: VS WNL. Slept in between care. Medicated once for left hip pain with relief. No further complaint presented. All needs attended and met. No fall/injury. No significant event reported all night. Continue current rehab plan of care.
[2018-08-17] MEDS: PANTOPRAZOLE SODIUM 40 MG TABLET.DR PO SCH (06:10)
[2018-08-17] MEDS: GLIMEPIRIDE 2 MG TABLET PO SCH (08:20)
[2018-08-17] MEDS: MULTIVITAMINS,THERAPEUTIC TABLET PO SCH (08:20)
[2018-08-17] MEDS: CULTURELLE CAPSULE PO SCH (08:20)
[2018-08-17] MEDS: SERTRALINE HCL 50 MG TABLET PO SCH (08:20)
[2018-08-17] MEDS: ASPIRIN 81 MG TAB.CHEW PO SCH (08:21)
[2018-08-17] MEDS: METFORMIN HCL 500 MG TABLET PO SCH (08:21)
[2018-08-17] MEDS: CLOTRIMAZOLE 1% CREAM 30 GM TUBE TOP SCH (08:21)
[2018-08-17] MEDS: LIDOCAINE 5% PATCH TD SCH (08:21)
[2018-08-17 08:22] VITALS: BP 133/78
[2018-08-17] MEDS: LOSARTAN POTASSIUM 50 MG TABLET PO SCH (08:22)
[2018-08-17] MEDS: Z GUARD REMEDY PASTE 57 GM TUBE TOP SCH (08:22)
[2018-08-17] MEDS: AMLODIPINE 10 MG TABLET PO SCH (08:22)
--- NOTE | 2018-08-17 09:21 | NUR ---
Patient discharge to rehab facility around 920am in stable condition via ambulance and stretcher with family. medical instruction given to family, verbalize understanding. Follow up with MD Summres prior to rehab facility this morning. CD and xray result given to patient. MD Springer and MD Crystal notified. not in distress.
== END 2018-08-17 09:20 | DRG 559 ==
PROVIDERS: ADMIT Hospitalist; ATTEND Physical Medicine & Rehabilitation Pain Medicine
DX: S72.142D Displaced intertrochanteric fracture of left femur, subsequent encounter for closed fracture with routine healing (principal); G92 Toxic encephalopathy; J18.9 Pneumonia, unspecified organism; E87.1 Hypo-osmolality and hyponatremia; D68.59 Other primary thrombophilia; B17.9 Acute viral hepatitis, unspecified; Z48.815 Encounter for surgical aftercare following surgery on the digestive system; W19.XXXD Unspecified fall, subsequent encounter; K21.9 Gastro-esophageal reflux disease without esophagitis; E78.5 Hyperlipidemia, unspecified; D63.8 Anemia in other chronic diseases classified elsewhere; E11.42 Type 2 diabetes mellitus with diabetic polyneuropathy; F32.9 Major depressive disorder, single episode, unspecified; F03.90 Unspecified dementia, unspecified severity, without behavioral disturbance, psychotic disturbance, mood disturbance, and anxiety; R26.9 Unspecified abnormalities of gait and mobility; Z90.49 Acquired absence of other specified parts of digestive tract; D47.3 Essential (hemorrhagic) thrombocythemia; I10 Essential (primary) hypertension; E83.42 Hypomagnesemia; Z86.73 Personal history of transient ischemic attack (TIA), and cerebral infarction without residual deficits; F41.9 Anxiety disorder, unspecified; K59.00 Constipation, unspecified
CPT/HCPCS: 36415; 70030-TC; 71045; 73502; 83735; 84100; 85025; 92523; 92610; 97110; 97112; 97116; 97165; 97530; 97535; A4663; J1815; J2543; J3475; J7050; Q0163